=== PATIENT | male | born 1945 | race Caucasian/White ===

== ENCOUNTER 2018-11-15 11:26 | Inpatient (IN) | payer MEDICARE, OTHER ==
[~2018-11-15] VITALS: Ht 180.3 cm; Wt 106.1 kg
[~2018-11-15 11:26] MED LIST: ALFU10TA10 PO; ASPI-1009 PO; CARV3.122 PO; CHOL10002 PO; CYAN1TAB41; FLUO20CA39 PO; HYDR-3965 PO; HYDR12.522 PO; INSU100V12 SQ; LOSA25TA96 PO; MESA800T PO; NITR0.4T51 SL; POTA20TA19 PO; PREN1TAB41 PO; RANI300C7 PO; ROSU40TA PO; SUCR1TAB PO
[2018-11-15 11:50] LABS: BASOPHILS # (AUTO) 0.1 X10'3 (0-0.2); BASOPHILS % (AUTO) 1.1 % (0-1); EOSINOPHILS # (AUTO) 0.1 X10'3 (0-0.9); EOSINOPHILS % (AUTO) 1.6 % (0-6); HEMATOCRIT 29.6 % (42.0-52.0); LYMPHOCYTES % (AUTO) 16.2 % (21-51); MEAN CORPUSCULAR HGB CONC 33.6 g/dL (33.0-36.5); MEAN CORPUSCULAR VOLUME 86.3 FL (78-98); MONOCYTES # (AUTO) 0.5 X10'3 (0-0.9); MONOCYTES % (AUTO) 8.1 % (2-12); NEUTROPHILS # (AUTO) 4.4 X10'3 (1.8-7.7); PLATELET COUNT 189 X10'3 (140-440); RED BLOOD COUNT 3.43 X10'6 (4.70-6.10); RED CELL DISTRIBUTION WIDTH 16.2 % (11.5-14.5)
[2018-11-15 12:05] LABS: PARTIAL THROMBOPLASTIN TIME 28 SECONDS (22-32)
[2018-11-15 12:07] LABS: ALANINE AMINOTRANSFERASE 81 U/L (12-78); ALBUMIN 3.4 G/DL (3.4-5.0); ALBUMIN/GLOBULIN RATIO 1.1 (1.1-1.5); ALKALINE PHOSPHATASE 148 IU/L (46-116); ANION GAP 10 (8-16); ASPARTATE AMINO TRANSFERASE 33 U/L (10-37); BILIRUBIN,TOTAL 0.5 MG/DL (0.1-1.0); BLOOD UREA NITROGEN 33 MG/DL (7-18); BUN/CREATININE RATIO 14.5 (5.4-32.0); CHLORIDE 108 MMOL/L (99-107); CREATININE 2.27 MG/DL (0.60-1.10); GLUCOSE 208 MG/DL (70-104); POTASSIUM 4.2 MMOL/L (3.5-5.1); SODIUM 141 MMOL/L (135-145); TOTAL CARBON DIOXIDE 22.7 MMOL/L (24-32); TOTAL PROTEIN 6.4 G/DL (6.4-8.2); eGFR 29 ML/MIN
[2018-11-15] MEDS ORDERED: furosemide 10 MG/1 ML 10ml inj IV ONE (12:40)
[2018-11-15] MEDS ORDERED: METF-438 PO (12:59)
[2018-11-15] MEDS ORDERED: NITR0.4T SL (13:00)
[2018-11-15] MEDS ORDERED: RANI300T7 PO (13:02)
[2018-11-15] MEDS ORDERED: CYAN100097 PO (13:05)
[2018-11-15] MEDS ORDERED: MULT1TAB74 PO (13:06)
[2018-11-15] MEDS ORDERED: ASPI-845 PO (13:07)
[2018-11-15] MEDS ORDERED: LYR75C PO (13:08)
[2018-11-15] MEDS ORDERED: FURO-149 PO (13:08)
[2018-11-15] MEDS ORDERED: ROSU20TA2 PO (13:10)
[2018-11-15] MEDS ORDERED: magnesium Cl slow-release 64mg tablet PO PRN (14:45)
[2018-11-15] MEDS ORDERED: ondansetron/PF 4mg/2ml inj IV PRN (14:45)
[2018-11-15] MEDS ORDERED: magnesium 4gm in 100ml NS 100 ML IV PRN (14:45)
[2018-11-15] MEDS ORDERED: magnesium 2GM in 50ml NS 50 ML IV PRN (14:45)
[2018-11-15] MEDS ORDERED: potassium CL 10mEq/100ml bag 100 ML IV PRN ×2 (14:45)
[2018-11-15] MEDS ORDERED: acetaminophen 325mg tablet PO PRN (14:45)
[2018-11-15] MEDS ORDERED: potassium Cl 20 mEq SR tablet PO PRN ×2 (14:45)
--- NOTE | 2018-11-15 16:23 | NUR ---
PT CAME FROM THE ER AND WAS COMPLAINING OF BEING LIGHT HEADED. HE STATES IM A DM11. CHECKED HIS BS IT WAS 65. NO PROTOCOL ON EMAR YET. 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
[2018-11-15 17:00] VITALS: BP 172/72
[2018-11-15] MEDS ORDERED: MESSAGE TO PHARMACY PO ONE ×2 (17:00→17:05)
[2018-11-15] MEDS ORDERED: glucagon, human recombinant 1mg kit SUBCUT PRN (17:05)
[2018-11-15] MEDS ORDERED: dextrose ORAL solution 15 GM/59 ML bottle PO PRN ×2 (17:05)
[2018-11-15] MEDS ORDERED: insulin Lispro (HumaLOG) vial - multi-dose SQ SCH (17:05)
[2018-11-15] MEDS ORDERED: dextrose 50%-water 50ml dispensing syringe IV PRN ×2 (17:05)
[2018-11-15] MEDS ORDERED: SACU1TAB PO (17:25)
[2018-11-15] MEDS ORDERED: SERT100T PO (17:26)
[2018-11-15] MEDS ORDERED: HYDROcodone/acetaminophen 5mg/325mg tablet PO PRN (17:30)
[2018-11-15] MEDS ORDERED: nitroGLYCERIN 0.4mg SUBLingual tab SL PRN (17:30)
[2018-11-15] MEDS ORDERED: FLUoxetine 20mg capsule PO SCH (17:30)
--- NOTE | 2018-11-15 17:37 | NUR ---
MEDS ARE NOT UP FROM PHARMACY YET FOR 2976
--- NOTE | 2018-11-15 18:20 | NUR ---
GAVE REPORT TO RAYRAY SEO RN
--- NOTE | 2018-11-15 18:30 | NUR ---
Patient in room [facility]. I have received report from LOREN VICTOR and had the opportunity to ask questions and assume patient care.
[2018-11-15] MEDS: famotidine 20mg tablet PO SCH (19:50)
[2018-11-15] MEDS: sacubitril/valsartan 24mg-26mg tablet PO SCH (19:51)
[2018-11-15] MEDS: aspirin 325mg tablet, delayed-release (Ecotrin) PO SCH (19:51)
[2018-11-15] MEDS: carVEDilol 3.125mg tablet PO SCH (19:51)
[2018-11-15] MEDS: sucralfate 1 gm tablet PO SCH (19:51)
[2018-11-15] MEDS: heparin, porcine 5000 units/ml vial SQ SCH (19:56)
[2018-11-15 20:00] VITALS: BP 117/69
[2018-11-15] MEDS ORDERED: tamsulosin 0.4mg capsule PO SCH (21:00)
[2018-11-15] MEDS ORDERED: insulin glargine (Lantus) pen - multi-dose SQ SCH (21:00)
[2018-11-16] VITALS: BP 92/49
[2018-11-16 05:19] LABS: BASOPHILS # (AUTO) 0.1 X10'3 (0-0.2); BASOPHILS % (AUTO) 1.4 % (0-1); EOSINOPHILS # (AUTO) 0.2 X10'3 (0-0.9); EOSINOPHILS % (AUTO) 3.4 % (0-6); HEMATOCRIT 31.6 % (42.0-52.0); HEMOGLOBIN 10.6 g/dl (14.0-17.9); LYMPHOCYTES # (AUTO) 1.2 X10'3 (1.1-4.8); LYMPHOCYTES % (AUTO) 25.2 % (21-51); MEAN CORPUSCULAR HEMOGLOBIN 29.3 PG (27.0-31.0); MEAN CORPUSCULAR HGB CONC 33.7 g/dL (33.0-36.5); MEAN CORPUSCULAR VOLUME 86.8 FL (78-98); MEAN PLATELET VOLUME 7.8 FL (7.4-10.4); MONOCYTES # (AUTO) 0.6 X10'3 (0-0.9); MONOCYTES % (AUTO) 11.6 % (2-12); NEUTROPHILS # (AUTO) 2.9 X10'3 (1.8-7.7); NEUTROPHILS % (AUTO) 58.4 % (42-75); PLATELET COUNT 196 X10'3 (140-440); RED BLOOD COUNT 3.63 X10'6 (4.70-6.10); RED CELL DISTRIBUTION WIDTH 15.8 % (11.5-14.5); WHITE BLOOD COUNT 4.9 X10'3 (4.5-11.0)
[2018-11-16 05:36] LABS: ALBUMIN 3.3 G/DL (3.4-5.0); ANION GAP 10 (8-16); BLOOD UREA NITROGEN 32 MG/DL (7-18); BUN/CREATININE RATIO 16.4 (5.4-32.0); CALCIUM 9.4 MG/DL (8.5-10.1); CHLORIDE 108 MMOL/L (99-107); CREATININE 1.95 MG/DL (0.60-1.10); GLUCOSE 140 MG/DL (70-104); MAGNESIUM 1.9 MG/DL (1.5-2.4); POTASSIUM 3.6 MMOL/L (3.5-5.1); SODIUM 145 MMOL/L (135-145); TOTAL CARBON DIOXIDE 26.8 MMOL/L (24-32); eGFR 34 ML/MIN
--- NOTE | 2018-11-16 06:30 | NUR ---
Problems reprioritized. Patient report given, questions answered & plan of care reviewed with ELI VICTOR.
[2018-11-16 07:24] VITALS: BP 102/55
[2018-11-16] MEDS: sucralfate 1 gm tablet PO SCH (07:55)
[2018-11-16] MEDS: aspirin 325mg tablet, delayed-release (Ecotrin) PO SCH (07:58)
[2018-11-16] MEDS: famotidine 20mg tablet PO SCH (07:59)
[2018-11-16] MEDS: sacubitril/valsartan 24mg-26mg tablet PO SCH (08:00)
[2018-11-16] MEDS ORDERED: K and/or MAG REPLACEMENT MC SCH (08:00)
[2018-11-16] MEDS ORDERED: sertraline 50mg tablet PO SCH (08:00)
[2018-11-16] MEDS: carVEDilol 3.125mg tablet PO SCH (08:00)
[2018-11-16] MEDS ORDERED: atorvastatin 20mg tablet PO SCH (08:00)
[2018-11-16] MEDS: heparin, porcine 5000 units/ml vial SQ SCH (08:00)
[2018-11-16] MEDS ORDERED: potassium Cl 20 mEq SR tablet PO SCH (08:00)
[2018-11-16] MEDS ORDERED: multivitamins, therapeutics tablet PO SCH (08:00)
[2018-11-16] MEDS ORDERED: cyanocobalamin 500mcg tablet PO SCH (08:00)
[2018-11-16] MEDS ORDERED: vitamin D (cholecalciferol) 1,000 unit tablet PO SCH (08:00)
[2018-11-16] MEDS ORDERED: pregabalin 75mg capsule PO SCH (08:00)
[2018-11-16 11:13] VITALS: BP 119/71
--- NOTE | 2018-11-16 13:00 | NUR ---
Patient discharged home stable and appropriate. iv removed. telemetry removed. all belongings taken from room. diabetes survival skills given with discharge instructions. all reviewed with patient. all questions answered.
== END 2018-11-16 13:00 | disposition home or self-care (01) | DRG 682 ==
LOC: ER 11:27 → SUR 3N 16:14
PROVIDERS: ADMIT Internal Medicine; ATTEND Internal Medicine
DX: N17.9 Acute kidney failure, unspecified (principal); I50.23 Acute on chronic systolic (congestive) heart failure; D63.8 Anemia in other chronic diseases classified elsewhere; E78.5 Hyperlipidemia, unspecified; E11.40 Type 2 diabetes mellitus with diabetic neuropathy, unspecified; F32.9 Major depressive disorder, single episode, unspecified; I11.0 Hypertensive heart disease with heart failure; Z79.4 Long term (current) use of insulin; Z88.5 Allergy status to narcotic agent; Z88.1 Allergy status to other antibiotic agents; Z79.899 Other long term (current) drug therapy
CPT/HCPCS: 36415; 71045; 80048; 80053; 82948; 83036; 83735; 83880; 84484; 85025; 85610; 85730; 87081; 93005; 93306; 96374; 99285; G0378; J1644; J1815; J1940

== ENCOUNTER 2019-05-09 06:23 | Day surgery (SDC) | payer MEDICARE, OTHER ==
[2019-05-07 15:25] LABS: BASOPHILS # (AUTO) 0.1 X10'3 (0-0.2); BASOPHILS % (AUTO) 1.1 % (0-1); EOSINOPHILS # (AUTO) 0.1 X10'3 (0-0.9); EOSINOPHILS % (AUTO) 1.9 % (0-6); LYMPHOCYTES # (AUTO) 1.4 X10'3 (1.1-4.8); LYMPHOCYTES % (AUTO) 21.5 % (21-51); MEAN CORPUSCULAR HEMOGLOBIN 29.1 PG (27.0-31.0); MEAN CORPUSCULAR HGB CONC 33.3 g/dL (33.0-36.5); MEAN CORPUSCULAR VOLUME 87.4 FL (78-98); MEAN PLATELET VOLUME 7.6 FL (7.4-10.4); MONOCYTES # (AUTO) 0.5 X10'3 (0-0.9); MONOCYTES % (AUTO) 8.1 % (2-12); NEUTROPHILS # (AUTO) 4.3 X10'3 (1.8-7.7); NEUTROPHILS % (AUTO) 67.4 % (42-75); PRE OP HEMATOCRIT 35.7 % (42.0-52.0); PRE OP HEMOGLOBIN 11.9 g/dL (14.0-17.9); PRE OP PLATELET COUNT 204 X10'3 (140-440); RED BLOOD COUNT 4.09 X10'6 (4.70-6.10); RED CELL DISTRIBUTION WIDTH 15.7 % (11.5-14.5)
[2019-05-07 15:47] LABS: ALBUMIN/GLOBULIN RATIO 1.3 (1.1-1.5); ALKALINE PHOSPHATASE 79 IU/L (46-116); BLOOD UREA NITROGEN 36 MG/DL (7-18); BUN/CREATININE RATIO 17.5 (5.4-32.0); CALCIUM 9.5 MG/DL (8.5-10.1); CHLORIDE 106 MMOL/L (99-107); CREATININE 2.06 MG/DL (0.60-1.10); PRE OP ALT 21 U/L (30-65); PRE OP ANION GAP 13 (8-16); PRE OP AST 14 U/L (10-37); PRE OP BILIRUB, TOTAL 0.6 MG/DL (0.0-1.0); PRE OP POTASSIUM 4.1 MMOL/L (3.4-5.1); PRE OP SODIUM 142 MMOL/L (135-145); TOTAL CARBON DIOXIDE 23.4 MMOL/L (24-32); TOTAL PROTEIN 7.2 G/DL (6.4-8.2); eGFR 32 ML/MIN
[2019-05-07 15:50] LABS: PRE OP GLUCOSE 217 MG/DL (70-104)
[~2019-05-09] VITALS: Ht 180.3 cm; Wt 111.1 kg
[~2019-05-09 06:23] MED LIST changes: -ASPI-1009 PO; +ASPI-845 PO; +CYAN100097 PO; -CYAN1TAB41; -FLUO20CA39 PO; +FURO-149 PO; -HYDR12.522 PO; -LOSA25TA96 PO; +MULT1TAB74 PO; +NITR0.4T SL; -NITR0.4T51 SL; -PREN1TAB41 PO; -RANI300C7 PO; +RANI300T7 PO; -ROSU40TA PO; +SACU1TAB PO; +cefazolin/dext.iso 2gm/100ml 100 ML IV ONE; +famotidine 10mg tablet PO ONE; +famotidine 20mg tablet PO ONE; +ringers solution, lacted 1,000 ML IV SCH
[2019-05-09 06:30] VITALS: BP 119/65
[2019-05-09] MEDS ORDERED: BUPIVAcaine/PF 2.5mg/ml (0.25%) 10ml vial ONE (06:59)
[2019-05-09] MEDS ORDERED: famotidine 10mg tablet PO ONE (07:05)
[2019-05-09] MEDS ORDERED: LIDOcaine 1% (10mg/ml) 2ml vial ONE (07:16)
[2019-05-09] MEDS ORDERED: LIDOcaine 0.5% (5mg/ml) 50ml vial ONE (08:51)
[2019-05-09] MEDS ORDERED: midazolam 2 mg/2 ml injection ONE (08:55)
[2019-05-09] MEDS ORDERED: fentaNYL/PF 50MCG/1 ML 2ML syringe ONE (08:55)
[2019-05-09 09:17] VITALS: BP 103/62
--- NOTE | 2019-05-09 09:17 | NUR ---
Received from OR via TOBIN, accompanied by Anesthesiologist DR GALEANA and report given by Anesthesiologist. 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 Addendum: 05/09/19 at 0943 by Ashtyn Steel RN Amended: Links added.
[2019-05-09 09:27] VITALS: BP 110/61
[2019-05-09 09:37] VITALS: BP 104/57
[2019-05-09 09:47] VITALS: BP 115/63
[2019-05-09 09:57] VITALS: BP 118/61
--- NOTE | 2019-05-09 10:07 | NUR ---
D/C INSTRUCTIONS GIVEN AND GONE OVER W/PT WHO VERBALIZES UNDERSTANDING, PT D/CD TO HOME VIA W/C TO PRIVATE VEHICLE W/O INCIDENT. Addendum: 05/09/19 at 1021 by Ashtyn Steel RN Amended: Links added.
== END 2019-05-09 10:07 | disposition home or self-care (01) ==
LOC: PAS 06:23
PROVIDERS: ATTEND Orthopaedic Surgery Hand Surgery
DX: G56.02 Carpal tunnel syndrome, left upper limb (principal); J45.909 Unspecified asthma, uncomplicated; D64.9 Anemia, unspecified; I25.10 Atherosclerotic heart disease of native coronary artery without angina pectoris; F32.9 Major depressive disorder, single episode, unspecified; K21.9 Gastro-esophageal reflux disease without esophagitis; E78.00 Pure hypercholesterolemia, unspecified; I10 Essential (primary) hypertension; M19.90 Unspecified osteoarthritis, unspecified site; Z72.89 Other problems related to lifestyle; Z88.5 Allergy status to narcotic agent; Z79.899 Other long term (current) drug therapy; Z98.890 Other specified postprocedural states
CPT/HCPCS: 29848; 36415; 71046; 80053; 82948; 85025; 93005; J2001; J2250; J3010; J3490; A4215; J7120

== ENCOUNTER 2019-06-30 06:08 | Day surgery (SDC) | payer MEDICARE, OTHER ==
[2019-06-26 11:29] LABS: BASOPHILS # (AUTO) 0.1 X10'3 (0-0.2); BASOPHILS % (AUTO) 1.3 % (0-1); EOSINOPHILS # (AUTO) 0.2 X10'3 (0-0.9); EOSINOPHILS % (AUTO) 2.4 % (0-6); LYMPHOCYTES # (AUTO) 1.4 X10'3 (1.1-4.8); LYMPHOCYTES % (AUTO) 21.3 % (21-51); MEAN CORPUSCULAR HEMOGLOBIN 28.5 PG (27.0-31.0); MEAN CORPUSCULAR VOLUME 86.1 FL (78-98); MEAN PLATELET VOLUME 7.4 FL (7.4-10.4); MONOCYTES # (AUTO) 0.5 X10'3 (0-0.9); MONOCYTES % (AUTO) 7.2 % (2-12); NEUTROPHILS # (AUTO) 4.4 X10'3 (1.8-7.7); NEUTROPHILS % (AUTO) 67.8 % (42-75); PRE OP HEMATOCRIT 36.8 % (42.0-52.0); PRE OP HEMOGLOBIN 12.2 g/dL (14.0-17.9); PRE OP PLATELET COUNT 195 X10'3 (140-440); RED BLOOD COUNT 4.28 X10'6 (4.70-6.10); RED CELL DISTRIBUTION WIDTH 14.9 % (11.5-14.5)
[2019-06-26 11:57] LABS: ALBUMIN 4.1 G/DL (3.4-5.0); ALBUMIN/GLOBULIN RATIO 1.2 (1.1-1.5); ALKALINE PHOSPHATASE 88 IU/L (46-116); BLOOD UREA NITROGEN 40 MG/DL (7-18); BUN/CREATININE RATIO 20.7 (5.4-32.0); CALCIUM 9.8 MG/DL (8.5-10.1); CHLORIDE 106 MMOL/L (99-107); CREATININE 1.93 MG/DL (0.60-1.10); PRE OP ALT 15 U/L (30-65); PRE OP ANION GAP 7 (8-16); PRE OP AST 18 U/L (10-37); PRE OP BILIRUB, TOTAL 0.5 MG/DL (0.0-1.0); PRE OP GLUCOSE 133 MG/DL (70-104); PRE OP POTASSIUM 4.6 MMOL/L (3.4-5.1); PRE OP SODIUM 139 MMOL/L (135-145); TOTAL CARBON DIOXIDE 25.7 MMOL/L (24-32); TOTAL PROTEIN 7.4 G/DL (6.4-8.2); eGFR 34 ML/MIN
[~2019-06-30] VITALS: Ht 180.3 cm; Wt 108.9 kg
[~2019-06-30 06:08] MED LIST changes: +DOCUMENT DATE & TIME OF BETA-BLOCKER PO ONE; +FLUT1BLS4 INH; +albuterol 2.5 MG/3 ML nebule NEB ONE; -famotidine 10mg tablet PO ONE
[2019-06-30] MEDS ORDERED: BUPIVAcaine/PF 2.5mg/ml (0.25%) 10ml vial ONE (06:41)
[2019-06-30] MEDS ORDERED: ringers solution, lacted 1,000 ML IV SCH (07:12)
[2019-06-30] MEDS ORDERED: fentaNYL/PF 50MCG/1 ML 2ML syringe IV PRN ×2 (07:15)
[2019-06-30] MEDS ORDERED: ondansetron/PF 4mg/2ml inj IV PRN (07:15)
[2019-06-30] MEDS ORDERED: hydrALAZINE 20mg/ml inj. IV PRN (07:15)
[2019-06-30] MEDS ORDERED: HYDROmorphone inj. 0.5 MG/0.5 ML DISP.SYRIN IV PRN ×2 (07:15)
[2019-06-30] MEDS ORDERED: labetalol 20mg/4ml (5mg/ml) syringe IV PRN (07:15)
[2019-06-30] MEDS ORDERED: LIDOcaine 0.5% (5mg/ml) 50ml vial ONE (07:19)
[2019-06-30] MEDS ORDERED: MIDAZolam 5mg/5ml vial ONE (07:23)
[2019-06-30] MEDS ORDERED: fentaNYL/PF 50MCG/1 ML 2ML syringe ONE (07:23)
[2019-06-30] MEDS ORDERED: LIDOcaine 2% (20mg/ml) 5ml vial ONE (07:25)
[2019-06-30] MEDS ORDERED: propofol inj 20 ML IV ONE (07:25)
[2019-06-30 07:35] VITALS: BP 127/73
[2019-06-30 08:35] VITALS: BP 107/56
--- NOTE | 2019-06-30 08:35 | NUR ---
Received from OR via BED , accompanied by Anesthesiologist DR BERTRAND and report given by Anesthesiolgist. PATIENT WAKING UP, DENIES PAIN, V/S WNL, NEUROVASCULAR CHECKLS INTACT, 20G PIV TO LUE, SCD ON, DRESSING SPLINT TO RUE WHICH IS ELEVATED AND ICE APPLIED PER MD. PATIENT INSTRUCTED TO WIGGLE FINGERS OFTEN.
[2019-06-30 08:45] VITALS: BP 102/61
[2019-06-30 08:55] VITALS: BP 106/65
[2019-06-30 09:05] VITALS: BP 109/66
[2019-06-30 09:15] VITALS: BP 111/68
--- NOTE | 2019-06-30 09:15 | NUR ---
PATIENT A&OX4, DENIES PAIN, V/S WNL, NEUROVASCULAR CHECKLS INTACT, 20G PIV TO LUE D/C, SCD OFF, DRESSING /SPLINT TO RUE WHICH IS ELEVATED AND ICE APPLIED PER MD. PATIENT INSTRUCTED TO WIGGLE FINGERS OFTEN. I HAVE REVIEWED D/C INSTRUCTIONS WITH PATIENT AND FAMILY WHO VERBALIZES UNDERSTANDING. PATIENT D/C HOME WITH ALL BELONGINGS, TRANSPORTED TO [facility] VIA WC.
== END 2019-06-30 09:26 | disposition home or self-care (01) ==
LOC: PAS 06:08
PROVIDERS: ATTEND Orthopaedic Surgery Hand Surgery
DX: G56.01 Carpal tunnel syndrome, right upper limb (principal); M17.11 Unilateral primary osteoarthritis, right knee; F32.9 Major depressive disorder, single episode, unspecified; D64.9 Anemia, unspecified; I25.10 Atherosclerotic heart disease of native coronary artery without angina pectoris; E11.9 Type 2 diabetes mellitus without complications; E78.00 Pure hypercholesterolemia, unspecified; I10 Essential (primary) hypertension; K21.9 Gastro-esophageal reflux disease without esophagitis; Z79.899 Other long term (current) drug therapy; Z88.6 Allergy status to analgesic agent; Z98.890 Other specified postprocedural states; Z72.89 Other problems related to lifestyle
CPT/HCPCS: 29848; 36415; 80053; 82948; 85025; J2001; J2250; J2704; J3010; J3490; A4215; A7000; J7120

== ENCOUNTER 2020-01-21 09:04 | Day surgery (SDC) | payer MEDICARE, OTHER ==
[2020-01-20 13:33] LABS: BASOPHILS # (AUTO) 0.1 X10'3 (0-0.2); BASOPHILS % (AUTO) 1.4 % (0-1); EOSINOPHILS # (AUTO) 0.1 X10'3 (0-0.9); EOSINOPHILS % (AUTO) 1.9 % (0-6); HEMATOCRIT 32.4 % (42.0-52.0); HEMOGLOBIN 10.6 g/dl (14.0-17.9); LYMPHOCYTES % (AUTO) 19.6 % (21-51); MEAN CORPUSCULAR HEMOGLOBIN 29.3 PG (27.0-31.0); MEAN CORPUSCULAR HGB CONC 32.7 g/dL (33.0-36.5); MEAN CORPUSCULAR VOLUME 89.8 FL (78-98); MONOCYTES # (AUTO) 0.5 X10'3 (0-0.9); MONOCYTES % (AUTO) 9.8 % (2-12); NEUTROPHILS # (AUTO) 3.3 X10'3 (1.8-7.7); NEUTROPHILS % (AUTO) 67.3 % (42-75); PLATELET COUNT 138 X10'3 (140-440); RED BLOOD COUNT 3.61 X10'6 (4.70-6.10); WHITE BLOOD COUNT 4.9 X10'3 (4.5-11.0)
[2020-01-20 13:39] LABS: ALBUMIN 3.9 G/DL (3.4-5.0); ANION GAP 6 (8-16); BLOOD UREA NITROGEN 36 MG/DL (7-18); BUN/CREATININE RATIO 15.7 (5.4-32.0); CALCIUM 9.6 MG/DL (8.5-10.1); CHLORIDE 102 MMOL/L (99-107); CREATININE 2.29 MG/DL (0.60-1.10); GLUCOSE 273 MG/DL (70-104); POTASSIUM 4.2 MMOL/L (3.5-5.1); SODIUM 136 MMOL/L (135-145); TOTAL CARBON DIOXIDE 27.7 MMOL/L (24-32); eGFR 28 ML/MIN
[2020-01-20 13:42] LABS: PARTIAL THROMBOPLASTIN TIME 25 SECONDS (22-32)
[2020-01-21] VITALS (14 sets, daily range): BP systolic 94–129; BP diastolic 53–81
[~2020-01-21] VITALS: Ht 185.4 cm; Wt 107.5 kg
[~2020-01-21 09:04] MED LIST changes: -DOCUMENT DATE & TIME OF BETA-BLOCKER PO ONE; +MULT-620 PO; -MULT1TAB74 PO; -albuterol 2.5 MG/3 ML nebule NEB ONE; -cefazolin/dext.iso 2gm/100ml 100 ML IV ONE; -famotidine 20mg tablet PO ONE; -ringers solution, lacted 1,000 ML IV SCH
[2020-01-21] MEDS ORDERED: LIDOcaine/PRILOcaine 5gm cream TP ONE (09:25)
[2020-01-21] MEDS ORDERED: LORazepam 0.5 MG tablet PO PRN (09:25)
[2020-01-21] MEDS ORDERED: sodium bicarbonate (8.4%) inj. 150 ML in dextrose 5%-water 1,000 ML IV ONE (09:25)
[2020-01-21] MEDS ORDERED: diphenhydrAMINE 25mg capsule PO PRN (09:25)
[2020-01-21] MEDS ORDERED: normal saline 1,000 ML IV SCH (09:25)
[2020-01-21] MEDS ORDERED: FURO-150 PO (09:29)
[2020-01-21] MEDS ORDERED: acetylcysteine 200 MG/ml 4ml vial PO PRN (09:50)
[2020-01-21] MEDS ORDERED: verapamil 2.5 mg/ml inj IV ONE (09:54)
[2020-01-21] MEDS ORDERED: nitroGLYCERIN-Tridil 50MG/D5W 250 ML IV ONE (09:54)
[2020-01-21] MEDS ORDERED: midazolam 2 mg/2 ml injection ONE (09:55)
[2020-01-21] MEDS ORDERED: fentaNYL/PF 50MCG/1 ML 2ML syringe ONE (09:55)
[2020-01-21] MEDS ORDERED: heparin 1,000unit/ml 10ml vial 10 ML ONE (09:55)
[2020-01-21] MEDS ORDERED: LIDOcaine 1% (10mg/ml)w/preservative injection 20ml MDV ONE (09:55)
[2020-01-21] MEDS ORDERED: iohexol 350MG/ML 100ml bottle IV ONE (09:55)
[2020-01-21] MEDS ORDERED: iohexol 350 MG/ML 50ML vial IV ONE (09:55)
[2020-01-21] MEDS ORDERED: DOBUTamine-DoBUTrex 500mg/D5W 250 ML IV ONE (10:57)
[2020-01-21] MEDS ORDERED: sodium bicarbonate (8.4%) inj. 150 MEQ in dextrose 5%-water 1,000 ML IV SCH (12:20)
[2020-01-21] MEDS ORDERED: furosemide 40mg/4ml inj IV ONE (15:00)
== END 2020-01-21 17:55 | disposition home or self-care (01) ==
LOC: SSTAY O 09:04
PROVIDERS: ATTEND Internal Medicine Cardiovascular Disease
DX: R53.83 Other fatigue (principal); R06.02 Shortness of breath; I25.10 Atherosclerotic heart disease of native coronary artery without angina pectoris; T82.855A Stenosis of coronary artery stent, initial encounter; N18.9 Chronic kidney disease, unspecified; I50.22 Chronic systolic (congestive) heart failure; I35.0 Nonrheumatic aortic (valve) stenosis; Z79.899 Other long term (current) drug therapy; Y83.8 Other surgical procedures as the cause of abnormal reaction of the patient, or of later complication, without mention of misadventure at the time of the procedure; Y92.89 Other specified places as the place of occurrence of the external cause
CPT/HCPCS: 36415; 80048; 82948; 85025; 85610; 85730; 93005; 93460; 99152; 99153; C1769; C1894; J1250; J1644; J1940; J2001; J2250; J3010; J7030; Q0163; Q9967; A4620; A5120; A6258; C1751; J3490

== ENCOUNTER 2020-11-12 12:16 | Day surgery (SDC) | payer MEDICARE, OTHER ==
[2020-11-11 12:19] LABS: BASOPHILS # (AUTO) 0.1 X10'3 (0-0.2); BASOPHILS % (AUTO) 1.7 % (0-1); EOSINOPHILS # (AUTO) 0.1 X10'3 (0-0.9); EOSINOPHILS % (AUTO) 2.2 % (0-6); HEMATOCRIT 33.4 % (42.0-52.0); HEMOGLOBIN 11.1 g/dl (14.0-17.9); LYMPHOCYTES % (AUTO) 18.6 % (21-51); MEAN CORPUSCULAR HGB CONC 33.2 g/dL (33.0-36.5); MEAN CORPUSCULAR VOLUME 90.4 FL (78-98); MEAN PLATELET VOLUME 7.9 FL (7.4-10.4); MONOCYTES # (AUTO) 0.4 X10'3 (0-0.9); MONOCYTES % (AUTO) 7.4 % (2-12); NEUTROPHILS # (AUTO) 3.7 X10'3 (1.8-7.7); NEUTROPHILS % (AUTO) 70.1 % (42-75); PLATELET COUNT 166 X10'3 (140-440); RED CELL DISTRIBUTION WIDTH 15.4 % (11.5-14.5); WHITE BLOOD COUNT 5.3 X10'3 (4.5-11.0)
[2020-11-11 12:29] LABS: ANION GAP 13 (8-16); BLOOD UREA NITROGEN 68 MG/DL (7-18); BUN/CREATININE RATIO 24.5 (5.4-32.0); CALCIUM 9.6 MG/DL (8.5-10.1); CHLORIDE 106 MMOL/L (99-107); CREATININE 2.78 MG/DL (0.60-1.10); GLUCOSE 115 MG/DL (70-104); MAGNESIUM 2.5 MG/DL (1.5-2.4); POTASSIUM 3.8 MMOL/L (3.5-5.1); SODIUM 141 MMOL/L (135-145); TOTAL CARBON DIOXIDE 22.3 MMOL/L (24-32); eGFR 22 ML/MIN
[2020-11-11 12:30] LABS: PARTIAL THROMBOPLASTIN TIME 22 SECONDS (22-32)
[2020-11-12] VITALS (10 sets, daily range): BP systolic 94–121; BP diastolic 54–70
[~2020-11-12] VITALS: Ht 180.3 cm; Wt 96.5 kg
[~2020-11-12 12:16] MED LIST changes: -CHOL10002 PO; -FLUT1BLS4 INH; -FURO-149 PO; +FURO-150 PO; -MULT-620 PO; -SACU1TAB PO
[2020-11-12] MEDS ORDERED: CHOL200013 (12:58)
[2020-11-12] MEDS ORDERED: FURO40TA4 PO (12:58)
[2020-11-12] MEDS ORDERED: INSU100V12 SQ (12:58)
[2020-11-12] MEDS ORDERED: INSU100C4 SQ (12:58)
[2020-11-12] MEDS ORDERED: sodium bicarbonate (8.4%) inj. 150 ML in dextrose 5%-water 1,000 ML IV ONE (13:15)
[2020-11-12] MEDS ORDERED: midazolam 1 mg/ML 2ml injection ONE (13:15)
[2020-11-12] MEDS ORDERED: ceFAZolin 1000mg inj ONE (13:16)
[2020-11-12] MEDS ORDERED: fentaNYL/PF 50MCG/1 ML 2ML syringe ONE (13:16)
[2020-11-12] MEDS ORDERED: iohexol 350MG/ML 100ml bottle IV ONE (13:16)
--- NOTE | 2020-11-12 13:16 | NUR ---
DR. BOWDEN CALLED, NEW TELEPHONE ORDER FOR MUCOMYST X2 AND BICARB GTT FOR ELEVATED CREATNINE
[2020-11-12] MEDS ORDERED: LIDOcaine 1% W/epiNEPHrine 1:100,000 20ml vial ONE ×2 (13:17→14:31)
[2020-11-12] MEDS: acetylcysteine 200 MG/ml 4ml vial PO SCH ×2 (13:28→20:15)
[2020-11-12] MEDS ORDERED: ceFAZolin 2gm in dextrose, iso 50 ML IV ONE (13:58)
[2020-11-12] MEDS ORDERED: diphenhydrAMINE 50 mg/ml inj ONE (15:27)
[2020-11-12] MEDS ORDERED: HYDROcodone/acetaminophen 5mg/325mg tablet PO PRN (16:45)
[2020-11-12] MEDS ORDERED: HYDROcodone/acetaminophen 10/325mg tab PO PRN (16:45)
[2020-11-12] MEDS ORDERED: normal saline 1000ml 1,000 ML IV SCH (16:45)
[2020-11-12] MEDS ORDERED: vancomycin/NS 1 GM ADD-VANTAGE 250 ML X 1 DOSE IV ONE (18:00)
== END 2020-11-12 20:45 | disposition home or self-care (01) ==
LOC: SSTAY O 12:16
PROVIDERS: ATTEND Internal Medicine Cardiovascular Disease
DX: I42.0 Dilated cardiomyopathy (principal); I44.7 Left bundle-branch block, unspecified; I11.0 Hypertensive heart disease with heart failure; I50.22 Chronic systolic (congestive) heart failure; E78.5 Hyperlipidemia, unspecified; E11.9 Type 2 diabetes mellitus without complications; I25.10 Atherosclerotic heart disease of native coronary artery without angina pectoris; I42.9 Cardiomyopathy, unspecified; Z95.5 Presence of coronary angioplasty implant and graft; Z98.890 Other specified postprocedural states; Z79.899 Other long term (current) drug therapy; Z79.82 Long term (current) use of aspirin; Z79.4 Long term (current) use of insulin; Z88.5 Allergy status to narcotic agent; Z88.8 Allergy status to other drugs, medicaments and biological substances
CPT/HCPCS: 33225; 33249; 36415; 71046; 80048; 82948; 83735; 85025; 85610; 85730; 93005; 99152; 99153; C1769; C1882; C1887; C1894; C1895; C1900; J0690; J1200; J2250; J3010; J3370; Q9967; A4620

== ENCOUNTER 2021-01-18 08:40 | Inpatient (IN) | payer MEDICARE, OTHER ==
[~2021-01-18] VITALS: Ht 180.3 cm; Wt 88.8 kg
[~2021-01-18 08:40] MED LIST changes: -CARV3.122 PO; +CHOL200013; -FURO-150 PO; +FURO40TA4 PO; -HYDR-3965 PO; +INSU100C4 SQ; +POTA-207 PO; -POTA20TA19 PO; -RANI300T7 PO
[2021-01-18 09:42] LABS: BASOPHILS # (AUTO) 0.1 X10'3 (0-0.2); BASOPHILS % (AUTO) 0.8 % (0-1); EOSINOPHILS # (AUTO) 0.1 X10'3 (0-0.9); HEMATOCRIT 26.6 % (42.0-52.0); HEMOGLOBIN 8.5 g/dl (14.0-17.9); LYMPHOCYTES # (AUTO) 0.5 X10'3 (1.1-4.8); LYMPHOCYTES % (AUTO) 7.5 % (21-51); MEAN CORPUSCULAR HEMOGLOBIN 29.7 PG (27.0-31.0); MEAN CORPUSCULAR HGB CONC 31.8 g/dL (33.0-36.5); MEAN CORPUSCULAR VOLUME 93.4 FL (78-98); MEAN PLATELET VOLUME 8.2 FL (7.4-10.4); MONOCYTES # (AUTO) 0.5 X10'3 (0-0.9); MONOCYTES % (AUTO) 6.6 % (2-12); NEUTROPHILS % (AUTO) 84.1 % (42-75); PLATELET COUNT 151 X10'3 (140-440); RED BLOOD COUNT 2.84 X10'6 (4.70-6.10); RED CELL DISTRIBUTION WIDTH 16.5 % (11.5-14.5); WHITE BLOOD COUNT 7.2 X10'3 (4.5-11.0)
[2021-01-18 10:01] LABS: MAGNESIUM 2.1 MG/DL (1.5-2.4)
[2021-01-18 10:23] LABS: ALANINE AMINOTRANSFERASE 61 U/L (12-78); ALBUMIN 3.3 G/DL (3.4-5.0); ALBUMIN/GLOBULIN RATIO 0.9 (1.1-1.5); ALKALINE PHOSPHATASE 277 IU/L (46-116); ANION GAP 14 (8-16); ASPARTATE AMINO TRANSFERASE 46 U/L (10-37); BILIRUBIN,TOTAL 0.5 MG/DL (0.1-1.0); BLOOD UREA NITROGEN 40 MG/DL (7-18); BUN/CREATININE RATIO 20.4 (5.4-32.0); CALCIUM 9.1 MG/DL (8.5-10.1); CHLORIDE 109 MMOL/L (99-107); CREATININE 1.96 MG/DL (0.60-1.10); GLUCOSE 263 MG/DL (70-104); POTASSIUM 3.7 MMOL/L (3.5-5.1); SODIUM 143 MMOL/L (135-145); TOTAL CARBON DIOXIDE 19.7 MMOL/L (24-32); TOTAL PROTEIN 6.8 G/DL (6.4-8.2); eGFR 34 ML/MIN
[2021-01-18] MEDS ORDERED: aspirin 81mg tab.chew PO ONE (11:00)
[2021-01-18] MEDS ORDERED: iohexol 350MG/ML 100ml bottle IV ONE (11:24)
[2021-01-18] MEDS ORDERED: FAMO40TA59 PO (13:54)
[2021-01-18] MEDS ORDERED: FERR-39 PO (13:54)
[2021-01-18] MEDS ORDERED: SACU1TAB PO (13:54)
[2021-01-18] MEDS ORDERED: POTA-82 PO (13:54)
[2021-01-18] MEDS ORDERED: SUCR1TAB PO (13:54)
[2021-01-18] MEDS ORDERED: INSU100V12 SQ (13:54)
[2021-01-18] MEDS ORDERED: CYAN-51 PO (13:54)
[2021-01-18] MEDS ORDERED: FURO40TA4 PO (13:54)
[2021-01-18] MEDS ORDERED: ALLO100T25 PO (13:54)
[2021-01-18] MEDS ORDERED: SEMA0.25 SQ (13:54)
[2021-01-18] MEDS ORDERED: MESA1.2T PO (13:54)
[2021-01-18] MEDS ORDERED: ROSU40TA PO (13:54)
[2021-01-18] MEDS ORDERED: SERT-434 PO (13:54)
[2021-01-18] MEDS ORDERED: furosemide 10 MG/1 ML 10ml inj IV ONE (14:00)
[2021-01-18] MEDS ORDERED: potassium Cl 40MEQ/1/2NS 520ml 520 ML IV PRN ×2 (14:30)
[2021-01-18] MEDS ORDERED: acetaminophen 325mg tablet PO PRN (14:30)
[2021-01-18] MEDS ORDERED: potassium Cl 20 mEq SR tablet PO PRN ×2 (14:30)
[2021-01-18] MEDS ORDERED: ondansetron/PF 4mg/2ml inj IV PRN (14:30)
[2021-01-18] MEDS ORDERED: magnesium hydroxide 30ml (MOM) UD suspension PO PRN (14:30)
[2021-01-18] MEDS ORDERED: PERFLUTREN PROTEIN-A MICROSPHR (Optison) 0.22 MG/ML 3ML VIAL IV PRN (14:30)
[2021-01-18] MEDS ORDERED: mag hydrox/Alum hydrox/simeth 30ml oral suspension PO PRN (14:30)
[2021-01-18] MEDS ORDERED: dextrose 50%-water 50ml dispensing syringe IV PRN ×2 (15:45)
[2021-01-18] MEDS ORDERED: glucagon, human recombinant 1mg kit SUBCUT PRN (15:45)
[2021-01-18] MEDS ORDERED: insulin Lispro (HumaLOG) vial - multi-dose SQ SCH (15:45)
[2021-01-18] MEDS ORDERED: MESSAGE TO PHARMACY PO ONE (15:45)
[2021-01-18] MEDS ORDERED: dextrose ORAL solution 15 GM/59 ML bottle PO PRN ×2 (15:45)
[2021-01-18 16:50] LABS: HEMOGLOBIN A1C 6.6 % (4.5-6.2)
[2021-01-18] MEDS: K and/or MAG REPLACEMENT MC SCH (20:00)
[2021-01-18] MEDS ORDERED: docusate sod 100mg capsule PO SCH (20:00)
[2021-01-18] MEDS ORDERED: insulin glargine (Lantus) pen - multi-dose SQ SCH (21:00)
[2021-01-18] MEDS: sucralfate 1 gm tablet PO SCH (22:17)
[2021-01-18] MEDS: furosemide 10 MG/1 ML 10ml inj IV SCH (22:17)
--- NOTE | 2021-01-19 01:30 | NUR ---
Justina from ED called. Recieved pt report, waiting for pt to arrive to unit
--- NOTE | 2021-01-19 01:30 | NUR ---
REPORT GIVEN TO FLOOR RN; VSS UPON DC; PT AOX4
--- NOTE | 2021-01-19 02:38 | NUR ---
Pt arrived in room 18B, did a physical, 2 RN skin check, hooked up to tele box. Pt independant and walked to the bed, skin clear, [place], no ther issues identified at this time. VS: 107/65, 16, 89, 97%, 98.5.
[2021-01-19 02:46] VITALS: BP 107/65
--- NOTE | 2021-01-19 06:33 | NUR ---
Problems reprioritized. Patient report given, questions answered & plan of care reviewed with Drake.
[2021-01-19] MEDS ORDERED: mesalamine 1.2gm ER tablet PO SCH (08:00)
[2021-01-19] MEDS ORDERED: sertraline 50mg tablet PO SCH (08:00)
[2021-01-19] MEDS ORDERED: sacubitril/valsartan 24mg-26mg tablet PO SCH (08:00)
[2021-01-19] MEDS: K and/or MAG REPLACEMENT MC SCH (08:00)
[2021-01-19] MEDS ORDERED: aspirin 325mg tablet PO SCH (08:00)
[2021-01-19] MEDS ORDERED: allopurinol 100mg tablet PO SCH (08:00)
[2021-01-19] MEDS ORDERED: atorvastatin 20mg tablet PO SCH (08:00)
[2021-01-19] MEDS ORDERED: famotidine 20mg tablet PO SCH (08:00)
[2021-01-19] MEDS ORDERED: tamsulosin 0.4mg capsule PO SCH (08:00)
[2021-01-19 08:03] LABS: BASOPHILS # (AUTO) 0.1 X10'3 (0-0.2); BASOPHILS % (AUTO) 0.8 % (0-1); EOSINOPHILS # (AUTO) 0.2 X10'3 (0-0.9); EOSINOPHILS % (AUTO) 2.6 % (0-6); HEMOGLOBIN 8.7 g/dl (14.0-17.9); LYMPHOCYTES # (AUTO) 1.2 X10'3 (1.1-4.8); LYMPHOCYTES % (AUTO) 18.2 % (21-51); MEAN CORPUSCULAR HEMOGLOBIN 30.8 PG (27.0-31.0); MEAN CORPUSCULAR HGB CONC 33.4 g/dL (33.0-36.5); MEAN CORPUSCULAR VOLUME 92.4 FL (78-98); MEAN PLATELET VOLUME 8.1 FL (7.4-10.4); MONOCYTES # (AUTO) 0.6 X10'3 (0-0.9); MONOCYTES % (AUTO) 9.1 % (2-12); NEUTROPHILS # (AUTO) 4.4 X10'3 (1.8-7.7); NEUTROPHILS % (AUTO) 69.3 % (42-75); RED BLOOD COUNT 2.81 X10'6 (4.70-6.10); RED CELL DISTRIBUTION WIDTH 16.4 % (11.5-14.5); WHITE BLOOD COUNT 6.4 X10'3 (4.5-11.0)
[2021-01-19 08:06] LABS: PLATELET COUNT 163 X10'3 (140-440)
[2021-01-19 08:10] LABS: ALANINE AMINOTRANSFERASE 45 U/L (12-78); ALBUMIN 3.3 G/DL (3.4-5.0); ALKALINE PHOSPHATASE 256 IU/L (46-116); ANION GAP 14 (8-16); ASPARTATE AMINO TRANSFERASE 22 U/L (10-37); BILIRUBIN,TOTAL 0.5 MG/DL (0.1-1.0); BLOOD UREA NITROGEN 36 MG/DL (7-18); BUN/CREATININE RATIO 18.9 (5.4-32.0); CALCIUM 9.5 MG/DL (8.5-10.1); CHLORIDE 107 MMOL/L (99-107); GLUCOSE 126 MG/DL (70-104); POTASSIUM 3.6 MMOL/L (3.5-5.1); SODIUM 143 MMOL/L (135-145); TOTAL CARBON DIOXIDE 22.5 MMOL/L (24-32); TOTAL PROTEIN 6.7 G/DL (6.4-8.2); eGFR 35 ML/MIN
[2021-01-19] MEDS: furosemide 10 MG/1 ML 10ml inj IV SCH (09:31)
[2021-01-19] MEDS: sucralfate 1 gm tablet PO SCH (09:32)
[2021-01-24] MEDS ORDERED: Semaglutide (Ozempic) 0.5 MG SQ SCH (08:00)
[2021-02-14] MEDS ORDERED: ZINC50TA67 PO (13:25)
[2021-02-14] MEDS ORDERED: SERT50TA PO (13:25)
[2021-02-14] MEDS ORDERED: FAMO40TA7 PO (13:25)
[2021-02-14] MEDS ORDERED: CYAN500T71 PO (13:25)
[2021-02-14] MEDS ORDERED: FERR-121 PO (13:25)
[2021-02-14] MEDS ORDERED: CHOL400T57 PO (13:25)
[2021-02-14] MEDS ORDERED: POTA-207 PO (13:25)
[2021-02-14] MEDS ORDERED: ASCO-336 PO (13:25)
[2021-02-14] MEDS ORDERED: INSU100V12 SQ (14:22)
[2021-02-14] MEDS ORDERED: FURO-150 PO (14:22)
[2021-02-14] MEDS ORDERED: SEMA0.25 SQ (14:22)
[2021-02-16] MEDS ORDERED: CARV25TA2 PO (11:56)
[2021-02-16] MEDS ORDERED: MESA1.2T3 PO (11:56)
[2021-02-16] MEDS ORDERED: ROSU40TA PO (13:15)
[2021-02-16] MEDS ORDERED: ALLO100T25 PO (13:15)
[2021-02-16] MEDS ORDERED: SERT-434 PO (13:15)
== END 2021-01-19 14:33 | disposition home health service (06) | DRG 281 ==
LOC: ER 08:41 → ED HOLD 14:33 → PCU 3S 01-19 01:50
PROVIDERS: ADMIT Internal Medicine; ATTEND Family Medicine
PROC: B32T1ZZ Computerized Tomography (CT Scan) of Left Pulmonary Artery using Low Osmolar Contrast (ICD-10-PCS; principal; 2021-01-18)
PROC: B3201ZZ Computerized Tomography (CT Scan) of Thoracic Aorta using Low Osmolar Contrast (ICD-10-PCS; 2021-01-18)
PROC: B32S1ZZ Computerized Tomography (CT Scan) of Right Pulmonary Artery using Low Osmolar Contrast (ICD-10-PCS; 2021-01-18)
DX: I21.4 Non-ST elevation (NSTEMI) myocardial infarction (principal); I31.3 Pericardial effusion (noninflammatory); I42.8 Other cardiomyopathies; D64.9 Anemia, unspecified; E11.9 Type 2 diabetes mellitus without complications; I25.10 Atherosclerotic heart disease of native coronary artery without angina pectoris; I50.9 Heart failure, unspecified; Z20.822 Contact with and (suspected) exposure to COVID-19; Z95.5 Presence of coronary angioplasty implant and graft; Z95.810 Presence of automatic (implantable) cardiac defibrillator; Z88.5 Allergy status to narcotic agent; Z88.8 Allergy status to other drugs, medicaments and biological substances; Z79.899 Other long term (current) drug therapy; Z79.82 Long term (current) use of aspirin
CPT/HCPCS: 36415; 71045; 71275; 80053; 82948; 83036; 83735; 83880; 84484; 85025; 85610; 87081; 87635; 93005; 93308; 99285; G0378; J1815; J1940; Q9967

== ENCOUNTER 2021-02-02 06:52 | Day surgery (SDC) | payer MEDICARE, OTHER ==
[2021-02-01 12:45] LABS: BASOPHILS # (AUTO) 0.1 X10'3 (0-0.2); EOSINOPHILS # (AUTO) 0.1 X10'3 (0-0.9); EOSINOPHILS % (AUTO) 1.9 % (0-6); HEMATOCRIT 28.9 % (42.0-52.0); HEMOGLOBIN 9.6 g/dl (14.0-17.9); LYMPHOCYTES # (AUTO) 0.9 X10'3 (1.1-4.8); LYMPHOCYTES % (AUTO) 15.4 % (21-51); MEAN CORPUSCULAR HEMOGLOBIN 30.1 PG (27.0-31.0); MEAN CORPUSCULAR HGB CONC 33.2 g/dL (33.0-36.5); MEAN CORPUSCULAR VOLUME 90.7 FL (78-98); MEAN PLATELET VOLUME 7.1 FL (7.4-10.4); MONOCYTES # (AUTO) 0.4 X10'3 (0-0.9); MONOCYTES % (AUTO) 7.6 % (2-12); NEUTROPHILS # (AUTO) 4.3 X10'3 (1.8-7.7); NEUTROPHILS % (AUTO) 74.1 % (42-75); PLATELET COUNT 199 X10'3 (140-440); RED BLOOD COUNT 3.18 X10'6 (4.70-6.10); RED CELL DISTRIBUTION WIDTH 16.5 % (11.5-14.5); WHITE BLOOD COUNT 5.9 X10'3 (4.5-11.0)
[2021-02-01 12:59] LABS: ALBUMIN 3.7 G/DL (3.4-5.0); ANION GAP 12 (8-16); BLOOD UREA NITROGEN 41 MG/DL (7-18); BUN/CREATININE RATIO 21.2 (5.4-32.0); CALCIUM 9.2 MG/DL (8.5-10.1); CHLORIDE 107 MMOL/L (99-107); CREATININE 1.93 MG/DL (0.60-1.10); GLUCOSE 108 MG/DL (70-104); POTASSIUM 4.6 MMOL/L (3.5-5.1); SODIUM 141 MMOL/L (135-145); TOTAL CARBON DIOXIDE 22.2 MMOL/L (24-32); eGFR 34 ML/MIN
[2021-02-01 13:03] LABS: PARTIAL THROMBOPLASTIN TIME 25 SECONDS (22-32)
[2021-02-02] VITALS (35 sets, daily range): BP systolic 103–173; BP diastolic 53–87
[~2021-02-02] VITALS: Ht 185.4 cm; Wt 104.0 kg
[~2021-02-02 06:52] MED LIST changes: +ALLO100T25 PO; -CHOL200013; +CYAN-51 PO; -CYAN100097 PO; +FAMO40TA59 PO; +FERR-39 PO; -INSU100C4 SQ; +MESA1.2T PO; -MESA800T PO; -NITR0.4T SL; -POTA-207 PO; +POTA-82 PO; +ROSU40TA PO; +SACU1TAB PO; +SEMA0.25 SQ; +SERT-434 PO
[2021-02-02] MEDS ORDERED: sodium bicarbonate (8.4%) inj. 150 ML in dextrose 5%-water 1,000 ML IV ONE (07:15)
[2021-02-02] MEDS ORDERED: normal saline 1,000 ML IV SCH (07:15)
[2021-02-02] MEDS ORDERED: LIDOcaine/PRILOcaine 5gm cream TP ONE (07:20)
[2021-02-02] MEDS ORDERED: VITAMIN B12 PO (07:28)
[2021-02-02] MEDS ORDERED: NITR0.4T51 SL (07:28)
[2021-02-02] MEDS ORDERED: MESA800T PO (07:28)
[2021-02-02] MEDS ORDERED: CARV3.122 PO (07:28)
[2021-02-02] MEDS ORDERED: HYDR-3964 PO (07:28)
[2021-02-02] MEDS ORDERED: RANITIDINE HCL PO (07:28)
[2021-02-02] MEDS ORDERED: MULT-1085 PO (07:28)
[2021-02-02] MEDS ORDERED: acetylcysteine 200 MG/ml 4ml vial PO SCH (08:00)
[2021-02-02] MEDS ORDERED: iohexol 350MG/ML 100ml bottle IV ONE (08:24)
[2021-02-02] MEDS ORDERED: LIDOcaine 1% (10mg/ml)w/preservative injection 20ml MDV ONE (08:24)
[2021-02-02] MEDS ORDERED: fentaNYL/PF 50MCG/1 ML 2ML syringe ONE (08:24)
[2021-02-02] MEDS ORDERED: midazolam 1 mg/ML 2ml injection ONE (08:24)
[2021-02-02] MEDS ORDERED: iohexol 350 MG/ML 50ML vial IV ONE (08:24)
[2021-02-02] MEDS ORDERED: nitroGLYCERIN-Tridil 50MG/D5W 250 ML IV ONE (08:24)
[2021-02-02] MEDS ORDERED: heparin 1,000unit/ml 10ml vial 10 ML ONE (08:26)
[2021-02-02] MEDS ORDERED: verapamil 2.5 mg/ml inj IV ONE (08:26)
[2021-02-02 10:53] LABS: ISTAT HGB ART 8.8 g/dl (14.0-18.0); ISTAT Hct ART 26 %PCV (42-52); ISTAT O2 SATURATION ARTERIAL 99 % (95-98); ISTAT SOURCE ART
[2021-02-02] MEDS ORDERED: nitroGLYCERIN 0.4mg SUBLingual tab SL PRN (11:10)
[2021-02-02] MEDS ORDERED: metoprolol tartrate 1mg/ml inj IV PRN (11:10)
[2021-02-02] MEDS ORDERED: DOBUTamine-DoBUTrex 500mg/D5W 250 ML IV ONE (11:10)
[2021-02-02] MEDS ORDERED: normal saline 500ml IV soln 500 ML IV SCH (11:10)
[2021-02-02] MEDS ORDERED: atropine 0.1mg/ml 10ml syringe IV PRN (11:10)
[2021-02-02 13:46] LABS: ISTAT Hct MIX 26 %PCV (42-52); ISTAT O2 SATURATION MIX VENOUS 71 % (60-80); ISTAT SOURCE VEN
== END 2021-02-02 15:00 | disposition home or self-care (01) ==
LOC: SSTAY O 06:52
PROVIDERS: ATTEND Internal Medicine Cardiovascular Disease
DX: R53.83 Other fatigue (principal); R06.02 Shortness of breath; I25.10 Atherosclerotic heart disease of native coronary artery without angina pectoris; I42.0 Dilated cardiomyopathy; E11.9 Type 2 diabetes mellitus without complications; I11.0 Hypertensive heart disease with heart failure; I50.22 Chronic systolic (congestive) heart failure; E78.5 Hyperlipidemia, unspecified; I35.0 Nonrheumatic aortic (valve) stenosis; I25.2 Old myocardial infarction; I44.7 Left bundle-branch block, unspecified; J44.9 Chronic obstructive pulmonary disease, unspecified; G47.33 Obstructive sleep apnea (adult) (pediatric); E66.3 Overweight; Z68.31 Body mass index [BMI] 31.0-31.9, adult; Z95.5 Presence of coronary angioplasty implant and graft; Z88.5 Allergy status to narcotic agent; Z72.89 Other problems related to lifestyle; Z79.4 Long term (current) use of insulin; Z79.899 Other long term (current) drug therapy; Z79.82 Long term (current) use of aspirin; Z96.641 Presence of right artificial hip joint; Z98.890 Other specified postprocedural states
CPT/HCPCS: 36415; 80048; 82803; 82948; 85014; 85025; 85610; 85730; 93005; 93306; 93350; 93460; 99152; 99153; C1751; C1769; C1894; J1250; J1644; J2001; J2250; J3010; J7030; Q9967; A4620; A6258; J3490

== ENCOUNTER 2021-02-09 08:03 | Outpatient (CLI) | payer MEDICARE, OTHER ==
[~2021-02-09] VITALS: Ht 171.4 cm; Wt 97.5 kg
[~2021-02-09 08:03] MED LIST changes: -ALLO100T25 PO; +CARV3.122 PO; -CYAN-51 PO; -FAMO40TA59 PO; -FERR-39 PO; +HYDR-3964 PO; -MESA1.2T PO; +MESA800T PO; +MULT-1085 PO; +NITR0.4T51 SL; +RANITIDINE HCL PO; -ROSU40TA PO; -SERT-434 PO; +VITAMIN B12 PO
[2021-02-09 08:46] LABS: BASOPHILS # (AUTO) 0.1 X10'3 (0-0.2); BASOPHILS % (AUTO) 1.5 % (0-1); EOSINOPHILS # (AUTO) 0.2 X10'3 (0-0.9); EOSINOPHILS % (AUTO) 3.4 % (0-6); HEMATOCRIT 29.9 % (42.0-52.0); HEMOGLOBIN 9.8 g/dl (14.0-17.9); LYMPHOCYTES # (AUTO) 0.9 X10'3 (1.1-4.8); LYMPHOCYTES % (AUTO) 18.2 % (21-51); MEAN CORPUSCULAR HEMOGLOBIN 29.6 PG (27.0-31.0); MEAN CORPUSCULAR HGB CONC 32.7 g/dL (33.0-36.5); MEAN CORPUSCULAR VOLUME 90.5 FL (78-98); MEAN PLATELET VOLUME 7.5 FL (7.4-10.4); MONOCYTES # (AUTO) 0.5 X10'3 (0-0.9); MONOCYTES % (AUTO) 9.5 % (2-12); NEUTROPHILS # (AUTO) 3.3 X10'3 (1.8-7.7); NEUTROPHILS % (AUTO) 67.4 % (42-75); PLATELET COUNT 162 X10'3 (140-440); RED CELL DISTRIBUTION WIDTH 16.9 % (11.5-14.5); WHITE BLOOD COUNT 4.9 X10'3 (4.5-11.0)
[2021-02-09 08:52] LABS: PARTIAL THROMBOPLASTIN TIME 25 SECONDS (22-32)
[2021-02-09 09:01] LABS: ALANINE AMINOTRANSFERASE 21 U/L (12-78); ALBUMIN 3.7 G/DL (3.4-5.0); ALBUMIN/GLOBULIN RATIO 1.2 (1.1-1.5); ALKALINE PHOSPHATASE 133 IU/L (46-116); ANION GAP 11 (8-16); ASPARTATE AMINO TRANSFERASE 12 U/L (10-37); BILIRUBIN,TOTAL 0.4 MG/DL (0.1-1.0); BLOOD UREA NITROGEN 44 MG/DL (7-18); BUN/CREATININE RATIO 20.8 (5.4-32.0); CALCIUM 9.3 MG/DL (8.5-10.1); CHLORIDE 108 MMOL/L (99-107); CREATININE 2.12 MG/DL (0.60-1.10); GLUCOSE 134 MG/DL (70-104); POTASSIUM 4.2 MMOL/L (3.5-5.1); SODIUM 144 MMOL/L (135-145); TOTAL CARBON DIOXIDE 25.3 MMOL/L (24-32); TOTAL PROTEIN 6.9 G/DL (6.4-8.2); eGFR 31 ML/MIN
[2021-02-09] MEDS ORDERED: albuterol 2.5 MG/3 ML nebule NEB PRN (10:45)
[2021-02-09] MEDS ORDERED: IODIXANOL 320 MG/ML INFUS..BTL 100ML IV ONE (11:45)
[2021-02-09] MEDS ORDERED: IODIXANOL 320 MG/ML INFUS..BTL 50ML IV ONE (11:45)
[2021-02-14] MEDS ORDERED: ASCO-336 PO (13:25)
[2021-02-14] MEDS ORDERED: CHOL400T57 PO (13:25)
[2021-02-14] MEDS ORDERED: ZINC50TA67 PO (13:25)
[2021-02-14] MEDS ORDERED: CYAN500T71 PO (13:25)
[2021-02-14] MEDS ORDERED: SERT50TA PO (13:25)
[2021-02-14] MEDS ORDERED: POTA-207 PO (13:25)
[2021-02-14] MEDS ORDERED: FERR-121 PO (13:25)
[2021-02-14] MEDS ORDERED: FAMO40TA7 PO (13:25)
[2021-02-14] MEDS ORDERED: SEMA0.25 SQ (14:22)
[2021-02-14] MEDS ORDERED: INSU100V12 SQ (14:22)
[2021-02-14] MEDS ORDERED: FURO-150 PO (14:22)
[2021-02-16] MEDS ORDERED: CARV25TA2 PO (11:56)
[2021-02-16] MEDS ORDERED: MESA1.2T3 PO (11:56)
[2021-02-16] MEDS ORDERED: ROSU40TA PO (13:15)
[2021-02-16] MEDS ORDERED: SERT-434 PO (13:15)
[2021-02-16] MEDS ORDERED: ALLO100T25 PO (13:15)
== END 2021-02-09 23:59 | disposition home or self-care (01) ==
LOC: VAS 08:03
PROVIDERS: ATTEND Internal Medicine Cardiovascular Disease
DX: N40.0 Benign prostatic hyperplasia without lower urinary tract symptoms (principal); K40.90 Unilateral inguinal hernia, without obstruction or gangrene, not specified as recurrent; M19.90 Unspecified osteoarthritis, unspecified site; N20.0 Calculus of kidney; N28.1 Cyst of kidney, acquired; K76.0 Fatty (change of) liver, not elsewhere classified; I31.3 Pericardial effusion (noninflammatory); I26.99 Other pulmonary embolism without acute cor pulmonale; K44.9 Diaphragmatic hernia without obstruction or gangrene; I51.7 Cardiomegaly; I25.10 Atherosclerotic heart disease of native coronary artery without angina pectoris; I70.0 Atherosclerosis of aorta; J43.9 Emphysema, unspecified; M85.88 Other specified disorders of bone density and structure, other site; Z20.822 Contact with and (suspected) exposure to COVID-19
CPT/HCPCS: 36415; 71046; 71275; 74174; 80053; 85025; 85610; 85730; 87635; 93880; 94060; 94727; 94729; 94760; C9803; Q9967

== ENCOUNTER 2021-02-17 05:23 | Inpatient (IN) | payer MEDICARE, OTHER ==
[2021-02-14 14:46] LABS: BASOPHILS # (AUTO) 0.1 X10'3 (0-0.2); BASOPHILS % (AUTO) 1.4 % (0-1); EOSINOPHILS # (AUTO) 0.2 X10'3 (0-0.9); EOSINOPHILS % (AUTO) 3.5 % (0-6); LYMPHOCYTES # (AUTO) 1.3 X10'3 (1.1-4.8); LYMPHOCYTES % (AUTO) 26.1 % (21-51); MEAN CORPUSCULAR HEMOGLOBIN 29.7 PG (27.0-31.0); MEAN CORPUSCULAR HGB CONC 33.6 g/dL (33.0-36.5); MEAN CORPUSCULAR VOLUME 88.2 FL (78-98); MEAN PLATELET VOLUME 7.5 FL (7.4-10.4); MONOCYTES # (AUTO) 0.6 X10'3 (0-0.9); MONOCYTES % (AUTO) 12.3 % (2-12); NEUTROPHILS # (AUTO) 2.7 X10'3 (1.8-7.7); NEUTROPHILS % (AUTO) 56.7 % (42-75); PRE OP HEMATOCRIT 32.4 % (42.0-52.0); PRE OP PLATELET COUNT 187 X10'3 (140-440); RED BLOOD COUNT 3.67 X10'6 (4.70-6.10); RED CELL DISTRIBUTION WIDTH 16.7 % (11.5-14.5)
[2021-02-14 14:48] LABS: PRE OP PROTIME 10.7 SECONDS (9.0-12.0)
[2021-02-14 14:50] LABS: ALBUMIN 3.9 G/DL (3.4-5.0); ALBUMIN/GLOBULIN RATIO 1.1 (1.1-1.5); ALKALINE PHOSPHATASE 137 IU/L (46-116); BLOOD UREA NITROGEN 56 MG/DL (7-18); BUN/CREATININE RATIO 23.5 (5.4-32.0); CALCIUM 9.5 MG/DL (8.5-10.1); CHLORIDE 108 MMOL/L (99-107); CREATININE 2.38 MG/DL (0.60-1.10); PRE OP ALT 19 U/L (30-65); PRE OP ANION GAP 9 (8-16); PRE OP AST 15 U/L (10-37); PRE OP BILIRUB, TOTAL 0.3 MG/DL (0.0-1.0); PRE OP GLUCOSE 88 MG/DL (70-104); PRE OP POTASSIUM 4.6 MMOL/L (3.4-5.1); PRE OP SODIUM 142 MMOL/L (135-145); TOTAL PROTEIN 7.5 G/DL (6.4-8.2); eGFR 27 ML/MIN
[2021-02-14 15:00] LABS: UA COLLECTION TYPE CLN CATCH MIDSTREAM
[2021-02-14 15:01] LABS: CLARITY,URINE CLEAR (Clear); COLOR,URINE Yellow (Yellow); GLUCOSE, URINE NEGATIVE (Neg); KETONES,URINE NEGATIVE (Neg); LEUKOCYTE ESTERASE ,URINE NEGATIVE (Neg); NITRITES, URINE NEGATIVE (Neg); OCCULT BLOOD,URINE NEGATIVE (Neg); PROTEIN,URINE NEGATIVE (Neg); UROBILINOGEN,URINE 0.2 E.U/dL (0.2-1.0)
[2021-02-14 15:07] LABS: PRE OP HEMOGLOBIN 10.9 g/dL (14.0-17.9)
[2021-02-17] VITALS (25 sets, daily range): BP systolic 94–143; BP diastolic 56–80
[~2021-02-17] VITALS: Ht 180.3 cm; Wt 104.8 kg
[~2021-02-17 05:23] MED LIST changes: +ALLO100T25 PO; +ASCO-336 PO; +CARV25TA2 PO; -CARV3.122 PO; +CHOL400T57 PO; +CYAN500T71 PO; +FAMO40TA7 PO; +FERR-121 PO; +FURO-150 PO; -FURO40TA4 PO; -HYDR-3964 PO; +MESA1.2T3 PO; -MESA800T PO; -MULT-1085 PO; +POTA-207 PO; -POTA-82 PO; -RANITIDINE HCL PO; +ROSU40TA PO; +SERT-434 PO; -VITAMIN B12 PO; +ZINC50TA67 PO; +ringers solution, lacted 1,000 ML IV SCH
[2021-02-17] MEDS ORDERED: albuterol 2.5 MG/3 ML nebule NEB ONE (05:30)
[2021-02-17] MEDS ORDERED: cefazolin/dext.iso 2gm/50ml 50 ML IV ONE (05:30)
[2021-02-17] MEDS ORDERED: DOCUMENT DATE & TIME OF BETA-BLOCKER PO ONE (05:30)
[2021-02-17] MEDS ORDERED: ondansetron/PF 4mg/2ml inj IV PRN ×3 (05:30→08:40)
[2021-02-17] MEDS ORDERED: aspirin 325mg tablet PO ONE (05:30)
[2021-02-17] MEDS ORDERED: LIDOcaine 1% (10mg/ml) 2ml vial ONE (05:51)
[2021-02-17] MEDS ORDERED: nitroPRUSSIDE (NIPRIDE) (200MCG/ML) 100ML Drip IV SCH (06:00)
[2021-02-17] MEDS ORDERED: phenylephrine inj 50 MG in normal saline 250ml IV soln 245 ML IV SCH (06:00)
[2021-02-17] MEDS ORDERED: famotidine 20mg tablet PO ONE (06:00)
[2021-02-17] MEDS ORDERED: protamine sulfate 10mg/ml inj. ONE (06:13)
[2021-02-17] MEDS ORDERED: LIDOcaine 1% (10mg/ml)w/preservative injection 20ml MDV ONE (06:19)
[2021-02-17] MEDS ORDERED: iohexol 350MG/ML 100ml bottle IV ONE (06:19)
[2021-02-17] MEDS ORDERED: iohexol 350 MG/ML 50ML vial IV ONE (06:19)
[2021-02-17] MEDS ORDERED: heparin 1,000 UNITS/NS 500ml 1,500 ML ONE (06:19)
[2021-02-17] MEDS ORDERED: fentaNYL/PF 50MCG/1 ML 2ML syringe ONE (07:04)
[2021-02-17] MEDS ORDERED: midazolam 1 mg/ML 2ml injection ONE (07:05)
[2021-02-17] MEDS ORDERED: succinylcholine 20mg/ml inj IV ONE (07:16)
[2021-02-17] MEDS ORDERED: etomidate 2mg/ml inj. ONE (07:16)
[2021-02-17] MEDS ORDERED: rocuronium 10mg/ml inj IV ONE ×2 (07:21→07:22)
[2021-02-17] MEDS ORDERED: nitroGLYCERIN 0.4mg SUBLingual tab SL PRN (07:25)
[2021-02-17] MEDS ORDERED: ePHEDrine 50MG/ML INJ. ONE (07:28)
[2021-02-17] MEDS ORDERED: carVEDilol 12.5mg tablet PO SCH (07:30)
[2021-02-17] MEDS ORDERED: heparin 1,000unit/ml 10ml vial 10 ML ONE (07:34)
[2021-02-17] MEDS ORDERED: hydrALAZINE 20mg/ml inj. IV PRN ×2 (07:40→08:40)
[2021-02-17] MEDS ORDERED: enalaprilat dihydrate 2.5mg/2ml vial IV PRN (07:40)
[2021-02-17] MEDS ORDERED: fentaNYL/PF 50MCG/1 ML 2ML syringe IV PRN ×2 (07:40)
[2021-02-17] MEDS ORDERED: HYDROmorphone/PF 0.2 MG/ML SYRINGE IV PRN ×2 (07:40)
[2021-02-17] MEDS ORDERED: ringers solution, lacted 1,000 ML IV SCH (07:40)
[2021-02-17] MEDS ORDERED: neostigmine methylsulfate 1 MG/ML 10ml vial ONE (07:50)
[2021-02-17] MEDS ORDERED: glycopyrrolate 0.2mg/ml inj ONE (07:50)
[2021-02-17] MEDS ORDERED: potassium Cl 20 mEq SR tablet PO SCH (08:00)
[2021-02-17] MEDS ORDERED: ZINC PO SCH (08:00)
[2021-02-17] MEDS ORDERED: atorvastatin 20mg tablet PO SCH (08:00)
[2021-02-17] MEDS ORDERED: cholecalciferol (vitamin D3) 1,000 unit (25mcg) tablet PO SCH (08:00)
[2021-02-17] MEDS ORDERED: tamsulosin 0.4mg capsule PO SCH (08:00)
[2021-02-17] MEDS ORDERED: sertraline 50mg tablet PO SCH (08:00)
[2021-02-17] MEDS ORDERED: ascorbic acid 500mg tablet PO SCH (08:00)
[2021-02-17] MEDS ORDERED: allopurinol 100mg tablet PO SCH (08:00)
[2021-02-17] MEDS ORDERED: sucralfate 1 gm tablet PO SCH (08:00)
[2021-02-17] MEDS ORDERED: ferrous sulfate 325mg tablet PO SCH (08:00)
[2021-02-17] MEDS ORDERED: HYDROcodone/acetaminophen 5mg/325mg tablet PO PRN (08:40)
[2021-02-17] MEDS ORDERED: insulin Lispro (HumaLOG) vial - multi-dose SQ SCH (08:40)
[2021-02-17] MEDS ORDERED: insulin regular, human U-100 3ml vial - multi-dose SQ SCH (08:40)
[2021-02-17] MEDS ORDERED: ALPRAZolam 0.25mg tablet PO PRN (08:40)
[2021-02-17] MEDS ORDERED: diphenhydrAMINE 25mg capsule PO PRN (08:40)
[2021-02-17] MEDS ORDERED: dextrose 50%-water 50ml dispensing syringe IV PRN ×2 (08:40)
[2021-02-17] MEDS ORDERED: potassium Cl 20 mEq SR tablet PO PRN (08:40)
[2021-02-17] MEDS ORDERED: normal saline 1000ml 1,000 ML IV SCH (08:40)
[2021-02-17] MEDS ORDERED: acetaminophen 325mg tablet PO PRN (08:40)
[2021-02-17] MEDS ORDERED: labetalol 20mg/4ml (5mg/ml) syringe IV PRN (08:40)
[2021-02-17] MEDS ORDERED: docusate sod 100mg capsule PO PRN (08:40)
[2021-02-17] MEDS ORDERED: potassium CL 10mEq/100ml bag 100 ML IV PRN (08:40)
[2021-02-17] MEDS ORDERED: magnesium 4gm in 100ml NS 100 ML IV PRN (08:40)
[2021-02-17] MEDS ORDERED: MESSAGE TO PHARMACY PO ONE (08:40)
[2021-02-17] MEDS ORDERED: glucagon, human recombinant 1mg kit SUBCUT PRN (08:40)
[2021-02-17] MEDS ORDERED: magnesium 2GM in 50ml NS 50 ML IV PRN (08:40)
[2021-02-17] MEDS ORDERED: dextrose ORAL solution 15 GM/59 ML bottle PO PRN ×2 (08:40)
[2021-02-17] MEDS ORDERED: potassium Cl 40MEQ/1/2NS 520ml 520 ML IV PRN (08:40)
--- NOTE | 2021-02-17 08:45 | NUR ---
Received from OR via BED, accompanied by Anesthesiologist DR. BERTRAND and report given by Anesthesiolgist AND OR NURSE. PT ARRIVED DROWSY ON 10L 02 VIA MASK. 18G IV TO RIGHT WRIST, ART LINE TO LEFT WRIST. LR AND [place] RUNNING. BILAT INGUINAL SITES ASSESSED. SCANT BLOOD NOTED ON LEFT SIDE CONTAINED WITHIN DRESSING AND WILL CONTINUE TO ASSESS, RIGHT SIDE IS C/D/I. VSS. NO PAIN OR NAUSEA NOTED. 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 Addendum: 02/17/21 at 0915 by Nata Brandon RN Amended: Links added.
--- NOTE | 2021-02-17 09:40 | NUR ---
BILAT INGUINAL SITES UNCHANGED, DRAINAGE ON LEFT SIDE HAS STAYED THE SAME. PEDAL PULSES PALPABLE, STRONG AND EQUAL. NEURO CHECK COMPLETED, NO DEFICITS NOTED. Addendum: 02/17/21 at 0946 by Nata Brandon RN Amended: Links added.
--- NOTE | 2021-02-17 10:35 | NUR ---
Report called to receiving nurse KIERAN. Transferred via BED. Belongings, PHONE, GLASSES, CPAP AND CLOTHING SENT WITH PT TO ROOM. Special Issues communicated to receiving nurse. PT VSS. PT STATUS UNCHANGED. RN AT BEDSIDE TO ASSUME CARE. BED IN LOW POSITION, 2 RAILS UP, CALL LIGHT IN REACH. Addendum: 02/17/21 at 1116 by Nata Brandon RN Amended: Links added.
[2021-02-17] MEDS: ferrous sulfate 325mg tablet PO SCH (12:41)
[2021-02-17] MEDS: atorvastatin 20mg tablet PO SCH (12:41)
[2021-02-17] MEDS: tamsulosin 0.4mg capsule PO SCH (12:42)
[2021-02-17] MEDS: ascorbic acid 500mg tablet PO SCH (12:42)
[2021-02-17] MEDS: cholecalciferol (vitamin D3) 1,000 unit (25mcg) tablet PO SCH (12:43)
[2021-02-17] MEDS: allopurinol 100mg tablet PO SCH (12:43)
[2021-02-17] MEDS: cyanocobalamin 500mcg tablet PO SCH (12:46)
[2021-02-17] MEDS: sertraline 50mg tablet PO SCH (12:47)
[2021-02-17] MEDS: ceFAZolin 1GM/D5W- ADD-VANTAGE 50 ML IV SCH (15:56)
[2021-02-17] MEDS: carVEDilol 12.5mg tablet PO SCH (17:49)
[2021-02-17] MEDS: sod chloride 0.9% 10ml flush syringe IV SCH (17:50)
--- NOTE | 2021-02-17 18:37 | NUR ---
Problems reprioritized. Patient report given, questions answered & plan of care reviewed with VALENTE Paula.
[2021-02-17] MEDS: vancomycin/NS 1 GM ADD-VANTAGE 250 ML IV SCH (20:00)
[2021-02-17] MEDS: sacubitril/valsartan 24mg-26mg tablet PO SCH ×2 (20:00→21:09)
[2021-02-17] MEDS ORDERED: insulin glargine (Lantus) pen - multi-dose SQ SCH ×2 (21:00)
[2021-02-17] MEDS: sucralfate 1 gm tablet PO SCH (21:09)
[2021-02-18 02:00] VITALS: BP 104/61
[2021-02-18 05:57] LABS: BASOPHILS # (AUTO) 0.1 X10'3 (0-0.2); BASOPHILS % (AUTO) 0.9 % (0-1); EOSINOPHILS # (AUTO) 0.2 X10'3 (0-0.9); EOSINOPHILS % (AUTO) 2.9 % (0-6); HEMATOCRIT 29.5 % (42.0-52.0); HEMOGLOBIN 9.9 g/dl (14.0-17.9); LYMPHOCYTES % (AUTO) 15.4 % (21-51); MEAN CORPUSCULAR HGB CONC 33.6 g/dL (33.0-36.5); MEAN CORPUSCULAR VOLUME 89.3 FL (78-98); MEAN PLATELET VOLUME 7.8 FL (7.4-10.4); MONOCYTES # (AUTO) 0.6 X10'3 (0-0.9); NEUTROPHILS # (AUTO) 4.6 X10'3 (1.8-7.7); NEUTROPHILS % (AUTO) 71.8 % (42-75); PLATELET COUNT 176 X10'3 (140-440); RED BLOOD COUNT 3.31 X10'6 (4.70-6.10); RED CELL DISTRIBUTION WIDTH 16.1 % (11.5-14.5); WHITE BLOOD COUNT 6.4 X10'3 (4.5-11.0)
[2021-02-18 06:00] VITALS: BP 111/56
[2021-02-18 06:15] LABS: ALANINE AMINOTRANSFERASE 15 U/L (12-78); ALBUMIN 3.2 G/DL (3.4-5.0); ALKALINE PHOSPHATASE 98 IU/L (46-116); ANION GAP 10 (8-16); ASPARTATE AMINO TRANSFERASE 15 U/L (10-37); BILIRUBIN,TOTAL 0.3 MG/DL (0.1-1.0); BLOOD UREA NITROGEN 45 MG/DL (7-18); BUN/CREATININE RATIO 24.6 (5.4-32.0); CALCIUM 9.2 MG/DL (8.5-10.1); CHLORIDE 107 MMOL/L (99-107); CREATININE 1.83 MG/DL (0.60-1.10); GLUCOSE 148 MG/DL (70-104); MAGNESIUM 2.4 MG/DL (1.5-2.4); POTASSIUM 3.7 MMOL/L (3.5-5.1); SODIUM 140 MMOL/L (135-145); TOTAL PROTEIN 6.4 G/DL (6.4-8.2); eGFR 36 ML/MIN
[2021-02-18] MEDS ORDERED: pantoprazole 40mg Tablet.DR PO PRN (07:30)
[2021-02-18] MEDS: mesalamine 1.2gm ER tablet PO SCH ×2 (08:00→08:21)
[2021-02-18] MEDS: ceFAZolin 1GM/D5W- ADD-VANTAGE 50 ML IV SCH ×2 (08:00→08:17)
[2021-02-18] MEDS ORDERED: aspirin 325mg tablet, delayed-release (Ecotrin) PO SCH (08:00)
[2021-02-18] MEDS: sod chloride 0.9% 10ml flush syringe IV SCH (08:00)
[2021-02-18] MEDS ORDERED: famotidine 20mg tablet PO SCH (08:00)
[2021-02-18] MEDS: atorvastatin 20mg tablet PO SCH (08:19)
[2021-02-18] MEDS: cyanocobalamin 500mcg tablet PO SCH (08:20)
[2021-02-18] MEDS: sacubitril/valsartan 24mg-26mg tablet PO SCH (08:21)
[2021-02-18] MEDS: ascorbic acid 500mg tablet PO SCH (08:23)
[2021-02-18] MEDS: sucralfate 1 gm tablet PO SCH (08:23)
[2021-02-18] MEDS: sertraline 50mg tablet PO SCH (08:23)
[2021-02-18] MEDS: tamsulosin 0.4mg capsule PO SCH (08:25)
[2021-02-18] MEDS: carVEDilol 12.5mg tablet PO SCH (08:25)
[2021-02-18] MEDS: cholecalciferol (vitamin D3) 1,000 unit (25mcg) tablet PO SCH (08:25)
[2021-02-18] MEDS: allopurinol 100mg tablet PO SCH (08:25)
[2021-02-18] MEDS: ferrous sulfate 325mg tablet PO SCH (08:26)
[2021-02-18] MEDS: vancomycin/NS 1 GM ADD-VANTAGE 250 ML IV SCH (09:37)
[2021-02-18 11:00] VITALS: BP 117/58
--- NOTE | 2021-02-18 13:25 | NUR ---
Pt stable for D/C Pt stable for D/C - all d/c ppwk reviewed with pt and pt verbalized understanding. Follow up appts were reviewed in detail and pt verbalized understanding. PIV was removed from R wrist and pt tolerated well. Mobile 66 leads were removed from pt. NO New RX. Pt was able to get dressed by himself. All personal belongings were bagged and sent with patient. Pt was wheeled out to private vehicle where family was waiting.
== END 2021-02-18 13:00 | disposition home or self-care (01) | DRG 266 ==
LOC: PAS IN 05:23 → UNDOADMIN 05:23 → PAS IN 08:42 → EDSTATUS 10:30 → PCU 3S 10:34 → PAS IN 10:34 → UNDODISIN 02-18 13:00
PROVIDERS: ADMIT Internal Medicine Cardiovascular Disease; ATTEND Internal Medicine Cardiovascular Disease
PROC: 03HY32Z Insertion of Monitoring Device into Upper Artery, Percutaneous Approach (ICD-10-PCS; 2021-02-17)
PROC: B41F1ZZ Fluoroscopy of Right Lower Extremity Arteries using Low Osmolar Contrast (ICD-10-PCS; 2021-02-17)
PROC: B41G1ZZ Fluoroscopy of Left Lower Extremity Arteries using Low Osmolar Contrast (ICD-10-PCS; 2021-02-17)
PROC: B3101ZZ Fluoroscopy of Thoracic Aorta using Low Osmolar Contrast (ICD-10-PCS; 2021-02-17)
PROC: 02RF38Z Replacement of Aortic Valve with Zooplastic Tissue, Percutaneous Approach (ICD-10-PCS; principal; 2021-02-17 07:05)
DX: I35.0 Nonrheumatic aortic (valve) stenosis (principal); Z00.6 Encounter for examination for normal comparison and control in clinical research program; I50.23 Acute on chronic systolic (congestive) heart failure; I42.0 Dilated cardiomyopathy; K50.90 Crohn's disease, unspecified, without complications; E11.9 Type 2 diabetes mellitus without complications; E78.5 Hyperlipidemia, unspecified; G47.33 Obstructive sleep apnea (adult) (pediatric); I70.0 Atherosclerosis of aorta; K21.9 Gastro-esophageal reflux disease without esophagitis; D64.9 Anemia, unspecified; N28.9 Disorder of kidney and ureter, unspecified; J44.9 Chronic obstructive pulmonary disease, unspecified; I25.10 Atherosclerotic heart disease of native coronary artery without angina pectoris; I11.0 Hypertensive heart disease with heart failure; Z95.5 Presence of coronary angioplasty implant and graft; Z95.810 Presence of automatic (implantable) cardiac defibrillator; Z88.5 Allergy status to narcotic agent; Z88.1 Allergy status to other antibiotic agents; Z79.899 Other long term (current) drug therapy
CPT/HCPCS: 33361; 36415; 71045; 80053; 81003; 82948; 83036; 83735; 83880; 85025; 85347; 85610; 85730; 86885; 86900; 86901; 86920; 87081; 93005; 93308; A4618; A6258; A6449; C1756; C1760; C1769; C1894; G0378; J0330; J0690; J1644; J1815; J2001; J2250; J2370; J2710; J2720; J3010; J3370; J3490; J7030; J7040; J7050; J7120; Q9967

== ENCOUNTER 2021-03-31 11:43 | Outpatient (CLI) | payer MEDICARE, OTHER ==
[~2021-03-31 11:43] MED LIST changes: -ringers solution, lacted 1,000 ML IV SCH
--- NOTE | 2021-03-31 17:45 | NUR ---
Patient was seen today for TAVR follow-up with Dr. Vázquez. KCCQ12 completed. Walk test completed. Vital signs measured. Echo and EKG done in clinic and reviewed with patient along with current condition of patients.
== END 2021-03-31 23:59 | disposition home or self-care (01) ==
LOC: CARD DIAG 11:43
PROVIDERS: ATTEND Internal Medicine Cardiovascular Disease
DX: I34.0 Nonrheumatic mitral (valve) insufficiency (principal); R94.31 Abnormal electrocardiogram [ECG] [EKG]; Z95.2 Presence of prosthetic heart valve; Z48.812 Encounter for surgical aftercare following surgery on the circulatory system
CPT/HCPCS: 93005; 93306

== ENCOUNTER 2022-07-25 09:03 | Outpatient (CLI) | payer MEDICARE, OTHER | END 2022-07-25 23:59 | disposition home or self-care (01) | LOC: CARD DIAG 09:03 | PROVIDERS: ATTEND Internal Medicine Cardiovascular Disease | DX: I08.0 Rheumatic disorders of both mitral and aortic valves (principal); R06.02 Shortness of breath; I42.0 Dilated cardiomyopathy; Z95.2 Presence of prosthetic heart valve | CPT/HCPCS: 93306 ==

== ENCOUNTER 2023-05-01 05:38 | Observation (INO) | payer BC, MEDICARE, OTHER ==
[2023-04-25 16:36] LABS: BASOPHILS # (AUTO) 0.1 X10'3 (0-0.2); BASOPHILS % (AUTO) 0.9 % (0-1); BILIRUBIN,URINE NEGATIVE (Neg); CLARITY,URINE CLEAR (Clear); COLOR,URINE STRAW (Yellow); EOSINOPHILS # (AUTO) 0.1 X10'3 (0-0.9); EOSINOPHILS % (AUTO) 1.1 % (0-6); GLUCOSE, URINE NEGATIVE (Neg); KETONES,URINE NEGATIVE (Neg); LEUKOCYTE ESTERASE ,URINE NEGATIVE (Neg); LYMPHOCYTES # (AUTO) 1.5 X10'3 (1.1-4.8); LYMPHOCYTES % (AUTO) 19.3 % (21-51); MEAN CORPUSCULAR HEMOGLOBIN 30.1 PG (27.0-31.0); MEAN CORPUSCULAR HGB CONC 32.9 g/dL (33.0-36.5); MEAN CORPUSCULAR VOLUME 91.6 FL (78-98); MONOCYTES # (AUTO) 0.6 X10'3 (0-0.9); MONOCYTES % (AUTO) 8.4 % (2-12); NEUTROPHILS # (AUTO) 5.4 X10'3 (1.8-7.7); NEUTROPHILS % (AUTO) 70.3 % (42-75); NITRITES, URINE NEGATIVE (Neg); OCCULT BLOOD,URINE NEGATIVE (Neg); PH,URINE 5.5 (4.8-8.0); PRE OP HEMATOCRIT 38.6 % (42.0-52.0); PRE OP HEMOGLOBIN 12.7 g/dL (14.0-17.9); PRE OP PLATELET COUNT 162 X10'3 (140-440); PRE OP WHITE BLOOD COUNT 7.7 10'3 (4.8-10.8); PROTEIN,URINE NEGATIVE (Neg); RED BLOOD COUNT 4.21 X10'6 (4.70-6.10); RED CELL DISTRIBUTION WIDTH 15.8 % (11.5-14.5); UROBILINOGEN,URINE 0.2 E.U/dL (0.2-1.0)
[2023-04-25 16:37] LABS: UA COLLECTION TYPE CLN CATCH MIDSTREAM
[2023-04-25 16:41] LABS: ALBUMIN 3.7 G/DL (3.4-5.0); ALKALINE PHOSPHATASE 71 IU/L (46-116); BLOOD UREA NITROGEN 55 MG/DL (7-18); BUN/CREATININE RATIO 21.1 (10.0-20.0); CALCIUM 9.7 MG/DL (8.5-10.1); CHLORIDE 104 MMOL/L (99-107); CREATININE 2.61 MG/DL (0.60-1.10); PRE OP ALT 17 U/L (30-65); PRE OP ANION GAP 8 (8-16); PRE OP AST 21 U/L (10-37); PRE OP BILIRUB, TOTAL 0.6 MG/DL (0.0-1.0); PRE OP GLUCOSE 97 MG/DL (70-104); PRE OP POTASSIUM 4.5 MMOL/L (3.4-5.1); PRE OP SODIUM 137 MMOL/L (135-145); TOTAL CARBON DIOXIDE 24.6 MMOL/L (24-32); TOTAL PROTEIN 7.4 G/DL (6.4-8.2); eGFR 24 ML/MIN
[2023-04-25 16:57] LABS: HEMOGLOBIN A1C 6.7 % (4.5-6.2)
[2023-04-25 17:08] LABS: PRE OP PROTIME 10.4 SECONDS (9.0-12.0)
[~2023-05-01] VITALS: Ht 180.3 cm; Wt 93.0 kg
[2023-05-01] VITALS (34 sets, daily range): BP systolic 87–119; BP diastolic 60–78; PULSE 69–104; RESP 12–20; TEMP 97.6–98.9; O2SAT 93–100
[~2023-05-01 05:38] MED LIST changes: +ATOR-2 PO; +DOCUMENT DATE & TIME OF BETA-BLOCKER PO ONE; -ROSU40TA PO; -ZINC50TA67 PO; +cefazolin 2gm/D5W 100mL 100 ML IV ONE; +famotidine 20mg tablet PO ONE; +normal saline 1000ml 1,000 ML IV SCH; +tranexamic acid inj. 1,000 MG in normal saline IV soln 100ML IV ONE
[2023-05-01] MEDS ORDERED: tranexamic acid 100mg/ml inj. ONE (07:03)
[2023-05-01] MEDS ORDERED: vancomycin 1,000mg inj ONE (07:03)
[2023-05-01] MEDS ORDERED: naloxone 0.4 mg/ml inj IV PRN (07:20)
[2023-05-01] MEDS ORDERED: magnesium hydroxide 30ml (MOM) UD suspension PO PRN (07:20)
[2023-05-01] MEDS ORDERED: diphenhydrAMINE 25mg capsule PO PRN (07:20)
[2023-05-01] MEDS ORDERED: ondansetron/PF 4mg/2ml inj IV PRN ×2 (07:20→09:20)
[2023-05-01] MEDS ORDERED: acetaminophen 325mg tablet PO PRN (07:20)
[2023-05-01] MEDS ORDERED: bisacodyl 10mg suppository rectal RC PRN (07:20)
[2023-05-01] MEDS ORDERED: cloNIDine hcl/PF 100mcg/ml inj ONE (07:23)
[2023-05-01] MEDS ORDERED: fentaNYL/PF 50MCG/1 ML 2ML syringe ONE (07:26)
[2023-05-01] MEDS ORDERED: midazolam 1 mg/ML 2ml injection ONE (07:27)
[2023-05-01] MEDS ORDERED: ROPIVAcaine 0.5% (5mg/ml) 30ml vial ONE (07:27)
[2023-05-01] MEDS ORDERED: propofol inj 20 ML IV ONE (07:27)
[2023-05-01] MEDS ORDERED: EPHEDRINE SULFATE/0.9% NACL/PF 50 MG/5 ML ML IJ ONE (07:29)
[2023-05-01] MEDS ORDERED: sevoflurane 250ml liquid IH ONE (07:29)
[2023-05-01] MEDS ORDERED: cefazolin 2gm/D5W 100mL 100 ML IV SCH (08:00)
[2023-05-01] MEDS ORDERED: meperidine/PF 25mg/ml syringe IV PRN ×3 (09:20)
[2023-05-01] MEDS ORDERED: HYDROmorphone/PF 0.2 MG/ML SYRINGE IV PRN ×2 (09:20)
[2023-05-01] MEDS ORDERED: ringers solution, lacted 1,000 ML IV SCH (09:20)
[2023-05-01] MEDS ORDERED: nitroGLYCERIN 0.4mg SUBLingual tab SL SCH (11:40)
[2023-05-01] MEDS ORDERED: insulin Lispro (HumaLOG) vial - multi-dose SQ SCH (15:45)
[2023-05-01] MEDS ORDERED: MESSAGE TO PHARMACY PO ONE (15:45)
[2023-05-01] MEDS ORDERED: DEXTROSE 15 GM of carb/4 tabs (each vial/BOTTLE has 4 tablets) PO PRN ×2 (15:45)
[2023-05-01] MEDS ORDERED: dextrose 50%-water 50ml dispensing syringe IV PRN ×2 (15:45)
[2023-05-01] MEDS ORDERED: glucagon, human recombinant 1mg kit SUBCUT PRN (15:45)
[2023-05-01] MEDS: cefazolin 2gm/D5W 100mL 100 ML IV SCH ×2 (17:46→23:23)
[2023-05-01] MEDS: carVEDilol 12.5mg tablet PO SCH (20:00)
[2023-05-01] MEDS: sacubitril/valsartan 24mg-26mg tablet PO SCH (20:00)
[2023-05-01] MEDS: sucralfate 1 gm tablet PO SCH (20:36)
[2023-05-01] MEDS: potassium cl 20mEq in 1/2 NS 1,000 ML IV SCH ×2 (20:44→23:24)
[2023-05-01] MEDS ORDERED: insulin glargine (Lantus) pen - multi-dose SQ SCH ×2 (21:00)
[2023-05-01] MEDS: HYDROcodone/acetaminophen 10/325mg tab PO PRN (23:19)
[2023-05-02 02:00] VITALS: BP 111/70; PULSE 97; RESP 20; TEMP 97.9; O2SAT 92
[2023-05-02] MEDS: HYDROcodone/acetaminophen 10/325mg tab PO PRN ×3 (03:33→14:36)
[2023-05-02 06:00] VITALS: BP 98/60; PULSE 90; RESP 16; TEMP 98.1; O2SAT 95
[2023-05-02 07:10] LABS: BASOPHILS % (AUTO) 0.5 % (0-1); EOSINOPHILS % (AUTO) 0.3 % (0-6); HEMATOCRIT 30.4 % (42.0-52.0); HEMOGLOBIN 10.2 g/dl (14.0-17.9); LYMPHOCYTES # (AUTO) 1.2 X10'3 (1.1-4.8); LYMPHOCYTES % (AUTO) 12.1 % (21-51); MEAN CORPUSCULAR HEMOGLOBIN 30.5 PG (27.0-31.0); MEAN CORPUSCULAR HGB CONC 33.6 g/dL (33.0-36.5); MEAN CORPUSCULAR VOLUME 90.8 FL (78-98); MEAN PLATELET VOLUME 7.9 FL (7.4-10.4); MONOCYTES # (AUTO) 0.9 X10'3 (0-0.9); MONOCYTES % (AUTO) 9.5 % (2-12); NEUTROPHILS # (AUTO) 7.5 X10'3 (1.8-7.7); NEUTROPHILS % (AUTO) 77.6 % (42-75); PLATELET COUNT 123 X10'3 (140-440); RED BLOOD COUNT 3.35 X10'6 (4.70-6.10); RED CELL DISTRIBUTION WIDTH 15.6 % (11.5-14.5); WHITE BLOOD COUNT 9.6 X10'3 (4.5-11.0)
[2023-05-02 07:26] LABS: ANION GAP 10 (8-16); CHLORIDE 102 MMOL/L (99-107); POTASSIUM 4.4 MMOL/L (3.5-5.1); SODIUM 135 MMOL/L (135-145); TOTAL CARBON DIOXIDE 23.2 MMOL/L (24-32)
[2023-05-02 07:50] LABS: BLOOD UREA NITROGEN 52 MG/DL (7-18); CREATININE 2.67 MG/DL (0.60-1.10); eCRCL 25 ML/MIN; eGFR 23 ML/MIN
[2023-05-02] MEDS ORDERED: potassium Cl 20 mEq SR tablet PO SCH (08:00)
[2023-05-02] MEDS ORDERED: mesalamine 1.2gm ER tablet PO SCH (08:00)
[2023-05-02] MEDS: sacubitril/valsartan 24mg-26mg tablet PO SCH (08:00)
[2023-05-02] MEDS ORDERED: cyanocobalamin 500mcg tablet PO SCH (08:00)
[2023-05-02] MEDS: carVEDilol 12.5mg tablet PO SCH (08:00)
[2023-05-02] MEDS ORDERED: aspirin 325mg tablet, delayed-release (Ecotrin) PO SCH (08:00)
[2023-05-02] MEDS ORDERED: furosemide 20MG tablet PO SCH (08:00)
[2023-05-02] MEDS ORDERED: famotidine 20mg tablet PO SCH (08:00)
[2023-05-02] MEDS ORDERED: cholecalciferol (vitamin D3) 400 unit (10mcg) tablet PO SCH (08:00)
[2023-05-02] MEDS ORDERED: sertraline 50mg tablet PO SCH (08:00)
[2023-05-02] MEDS ORDERED: ferrous sulfate 325mg tablet PO SCH (08:00)
[2023-05-02] MEDS ORDERED: ascorbic acid 500mg tablet PO SCH (08:00)
[2023-05-02] MEDS ORDERED: atorvastatin 20mg tablet PO SCH (08:00)
[2023-05-02] MEDS ORDERED: tamsulosin 0.4mg capsule PO SCH (08:00)
[2023-05-02] MEDS ORDERED: allopurinol 100mg tablet PO SCH (08:30)
[2023-05-02] MEDS: sucralfate 1 gm tablet PO SCH (08:43)
[2023-05-02 08:47] VITALS: BP 98/53
[2023-05-02 10:00] VITALS: BP 112/58; PULSE 89; RESP 16; TEMP 97.8; O2SAT 97
[2023-05-02] MEDS ORDERED: HYDR-3972 PO ×2 (11:41)
[2023-05-02] MEDS ORDERED: HYDR-3965 PO (14:05)
[2023-05-02 14:36] VITALS: RESP 15
[2023-05-03] MEDS ORDERED: cholecalciferol (vitamin D3) 1,000 unit (25mcg) tablet PO SCH (08:00)
[2023-05-06] MEDS ORDERED: SEMAGLUTIDE 0.5 MG SQ SCH (08:00)
== END 2023-05-02 15:20 | disposition home or self-care (01) ==
LOC: PAS 05:38 → PAS IN 07:28 → ORTHO 4S 19:48
PROVIDERS: ADMIT Specialist; ATTEND Specialist
DX: M75.101 Unspecified rotator cuff tear or rupture of right shoulder, not specified as traumatic (principal); M17.11 Unilateral primary osteoarthritis, right knee; E11.9 Type 2 diabetes mellitus without complications; J44.9 Chronic obstructive pulmonary disease, unspecified; G47.30 Sleep apnea, unspecified; E78.5 Hyperlipidemia, unspecified; I25.2 Old myocardial infarction; F32.A Depression, unspecified; F43.10 Post-traumatic stress disorder, unspecified; Z79.899 Other long term (current) drug therapy
CPT/HCPCS: 23430; 23472; 36415; 71046; 73030; 80051; 80053; 81003; 82565; 82948; 83036; 84520; 85025; 85610; 85730; 86885; 86900; 86901; 87081; 96365; 96366; 97110; 97116; 97161; 97530; C1776; G0378; J0690; J0735; J1815; J2250; J2704; J2795; J3010; J3370; J3480; J3490; J7030; J7040; J7120; A4565; A4618; A6449; A6455; A7000

== ENCOUNTER 2023-06-12 14:00 | Inpatient (IN) | payer BC ==
[2023-06-08 10:30] LABS: BILIRUBIN,URINE NEGATIVE (Neg); CLARITY,URINE CLEAR (Clear); COLOR,URINE YELLOW (Yellow); GLUCOSE, URINE NEGATIVE (Neg); KETONES,URINE NEGATIVE (Neg); LEUKOCYTE ESTERASE ,URINE NEGATIVE (Neg); NITRITES, URINE NEGATIVE (Neg); OCCULT BLOOD,URINE NEGATIVE (Neg); PH,URINE 5.5 (4.8-8.0); PROTEIN,URINE NEGATIVE (Neg); UROBILINOGEN,URINE 0.2 E.U/dL (0.2-1.0)
[2023-06-08 10:37] LABS: BASOPHILS # (AUTO) 0.1 X10'3 (0-0.2); EOSINOPHILS # (AUTO) 0.2 X10'3 (0-0.9); EOSINOPHILS % (AUTO) 3.2 % (0-6); LYMPHOCYTES % (AUTO) 15.4 % (21-51); MEAN CORPUSCULAR HEMOGLOBIN 30.7 PG (27.0-31.0); MEAN CORPUSCULAR HGB CONC 32.9 g/dL (33.0-36.5); MEAN CORPUSCULAR VOLUME 93.3 FL (78-98); MEAN PLATELET VOLUME 7.5 FL (7.4-10.4); MONOCYTES # (AUTO) 0.6 X10'3 (0-0.9); MONOCYTES % (AUTO) 8.8 % (2-12); NEUTROPHILS # (AUTO) 4.9 X10'3 (1.8-7.7); NEUTROPHILS % (AUTO) 71.6 % (42-75); PRE OP HEMATOCRIT 31.1 % (42.0-52.0); PRE OP PLATELET COUNT 135 X10'3 (140-440); PRE OP WHITE BLOOD COUNT 6.8 10'3 (4.8-10.8); RED BLOOD COUNT 3.34 X10'6 (4.70-6.10)
[2023-06-08 10:38] LABS: UA COLLECTION TYPE CLN CATCH MIDSTREAM
[2023-06-08 10:46] LABS: PRE OP HEMOGLOBIN 10.3 g/dL (14.0-17.9)
[2023-06-08 11:14] LABS: PRE OP PROTIME 10.6 SECONDS (9.0-12.0)
[2023-06-08 13:07] LABS: ALBUMIN 3.3 G/DL (3.4-5.0); ALKALINE PHOSPHATASE 80 IU/L (46-116); BLOOD UREA NITROGEN 42 MG/DL (7-18); BUN/CREATININE RATIO 18.2 (10.0-20.0); CHLORIDE 107 MMOL/L (99-107); CREATININE 2.31 MG/DL (0.60-1.10); PRE OP ALT 17 U/L (30-65); PRE OP ANION GAP 11 (8-16); PRE OP AST 12 U/L (10-37); PRE OP BILIRUB, TOTAL 0.6 MG/DL (0.0-1.0); PRE OP GLUCOSE 112 MG/DL (70-104); PRE OP POTASSIUM 4.2 MMOL/L (3.4-5.1); PRE OP SODIUM 141 MMOL/L (135-145); TOTAL CARBON DIOXIDE 23.2 MMOL/L (24-32); TOTAL PROTEIN 6.7 G/DL (6.4-8.2); eGFR 28 ML/MIN
[~2023-06-12] VITALS: Ht 180.3 cm; Wt 94.0 kg
[2023-06-12] MEDS: tranexamic acid inj. 1,000 MG in normal saline IV soln 100ML IV ONE (05:30)
[2023-06-12] MEDS: famotidine 20mg tablet PO ONE (05:30)
[2023-06-12] MEDS: cefazolin 2gm/D5W 100mL 100 ML IV ONE (05:30)
[~2023-06-12 14:00] MED LIST changes: +HYDR-3973 PO; +OMEG-5 PO; +VITE400C PO; +albuterol 2.5 MG/3 ML nebule NEB ONE; -cefazolin 2gm/D5W 100mL 100 ML IV ONE; -famotidine 20mg tablet PO ONE; -normal saline 1000ml 1,000 ML IV SCH; +ringers solution, lacted 1,000 ML IV SCH; -tranexamic acid inj. 1,000 MG in normal saline IV soln 100ML IV ONE
[2023-06-19] VITALS (21 sets, daily range): BP systolic 87–140; BP diastolic 47–86; PULSE 89–109; RESP 12–18; TEMP 98.3–98.5; O2SAT 94–98
[2023-06-19] MEDS ORDERED: famotidine 20mg tablet PO ONE (05:30)
[2023-06-19] MEDS ORDERED: tranexamic acid inj. 1,000 MG in normal saline IV soln 100ML IV ONE (05:30)
[2023-06-19] MEDS ORDERED: albuterol 2.5 MG/3 ML nebule NEB ONE (05:30)
[2023-06-19] MEDS ORDERED: cefazolin 2gm/D5W 100mL 100 ML IV ONE (05:30)
[2023-06-19] MEDS ORDERED: DOCUMENT DATE & TIME OF BETA-BLOCKER PO ONE (05:30)
[2023-06-19] MEDS ORDERED: methylene blue (5mg/ml) 50mg/10ml ampul IV ONE (12:20)
[2023-06-19] MEDS ORDERED: tobramycin sulfate 1.2gm vial ONE (12:20)
[2023-06-19] MEDS: ringers solution, lacted 1,000 ML IV SCH (12:30)
[2023-06-19] MEDS ORDERED: midazolam 1 mg/ML 2ml injection ONE (12:56)
[2023-06-19] MEDS ORDERED: fentaNYL/PF 50MCG/1 ML 2ML syringe ONE (12:56)
[2023-06-19] MEDS ORDERED: ROPIVAcaine 0.5% (5mg/ml) 30ml vial ONE (12:59)
[2023-06-19] MEDS ORDERED: propofol inj 20 ML IV ONE (12:59)
[2023-06-19] MEDS ORDERED: dexamethasone sod phosphate 10mg/ml inj ONE (13:00)
[2023-06-19] MEDS ORDERED: sevoflurane 250ml liquid IH ONE (13:00)
[2023-06-19] MEDS ORDERED: LIDOcaine 2% (20mg/ml) 5ml vial ONE (13:00)
[2023-06-19] MEDS ORDERED: ondansetron/PF 4mg/2ml inj ONE (13:00)
[2023-06-19] MEDS ORDERED: magnesium hydroxide 30ml (MOM) UD suspension PO PRN (13:15)
[2023-06-19] MEDS ORDERED: diphenhydrAMINE 25mg capsule PO PRN (13:15)
[2023-06-19] MEDS ORDERED: naloxone 0.4 mg/ml inj IV PRN (13:15)
[2023-06-19] MEDS ORDERED: oxyCODONE IR 5mg (immed. release) tablet PO PRN (13:15)
[2023-06-19] MEDS ORDERED: acetaminophen 325mg tablet PO PRN (13:15)
[2023-06-19] MEDS ORDERED: ondansetron/PF 4mg/2ml inj IV PRN ×2 (13:15→14:20)
[2023-06-19] MEDS ORDERED: bisacodyl 10mg suppository rectal RC PRN (13:15)
[2023-06-19] MEDS ORDERED: proCHLORperazine 10 MG/2 ml inj IV PRN (14:20)
[2023-06-19] MEDS ORDERED: ringers solution, lacted 1,000 ML IV SCH (14:20)
[2023-06-19] MEDS ORDERED: enalaprilat dihydrate 2.5mg/2ml vial IV PRN (14:20)
[2023-06-19] MEDS ORDERED: labetalol 20mg/4ml (5mg/ml) syringe IV PRN (14:20)
[2023-06-19] MEDS ORDERED: meperidine/PF 25mg/ml syringe IV PRN ×2 (14:20)
[2023-06-19] MEDS: vancomycin 1,000mg inj ONE (15:12)
[2023-06-19] MEDS: meperidine/PF 25mg/ml syringe IV PRN (16:12)
[2023-06-19] MEDS ORDERED: DEXTROSE 15 GM of carb/4 tabs (each vial/BOTTLE has 4 tablets) PO PRN ×2 (17:50)
[2023-06-19] MEDS ORDERED: glucagon, human recombinant 1mg kit SUBCUT PRN (17:50)
[2023-06-19] MEDS ORDERED: dextrose 50%-water 50ml dispensing syringe IV PRN ×2 (17:50)
[2023-06-19] MEDS: HYDROcodone/acetaminophen 5mg/325mg tablet PO PRN (17:55)
[2023-06-19] MEDS: carVEDilol 12.5mg tablet PO SCH (20:00)
[2023-06-19] MEDS: cefazolin 2gm/D5W 100mL 100 ML IV SCH (20:28)
[2023-06-19] MEDS: normal saline 1000ml 1,000 ML IV SCH (20:28)
[2023-06-19] MEDS: insulin glargine (Lantus) pen - multi-dose SQ SCH (22:24)
[2023-06-20] MEDS: potassium cl 20mEq in 1/2 NS 1,000 ML IV SCH (02:35)
[2023-06-20] MEDS: HYDROcodone/acetaminophen 5mg/325mg tablet PO PRN (04:06)
[2023-06-20 06:00] VITALS: BP 109/62; PULSE 95; RESP 18; TEMP 97.9; O2SAT 96
[2023-06-20 06:56] LABS: BASOPHILS % (AUTO) 0.4 % (0-1); EOSINOPHILS % (AUTO) 0 % (0-6); HEMATOCRIT 25.4 % (42.0-52.0); HEMOGLOBIN 8.3 g/dl (14.0-17.9); LYMPHOCYTES # (AUTO) 0.8 X10'3 (1.1-4.8); MEAN CORPUSCULAR HEMOGLOBIN 30.6 PG (27.0-31.0); MEAN CORPUSCULAR HGB CONC 32.7 g/dL (33.0-36.5); MEAN CORPUSCULAR VOLUME 93.6 FL (78-98); MEAN PLATELET VOLUME 7.6 FL (7.4-10.4); MONOCYTES # (AUTO) 0.7 X10'3 (0-0.9); MONOCYTES % (AUTO) 9.5 % (2-12); NEUTROPHILS % (AUTO) 79.1 % (42-75); PLATELET COUNT 149 X10'3 (140-440); RED BLOOD COUNT 2.72 X10'6 (4.70-6.10); RED CELL DISTRIBUTION WIDTH 15.7 % (11.5-14.5); WHITE BLOOD COUNT 7.5 X10'3 (4.5-11.0)
[2023-06-20 07:27] LABS: ALANINE AMINOTRANSFERASE 14 U/L (12-78); ALBUMIN 2.8 G/DL (3.4-5.0); ALKALINE PHOSPHATASE 77 IU/L (46-116); ANION GAP 10 (8-16); ASPARTATE AMINO TRANSFERASE 18 U/L (10-37); BILIRUBIN,TOTAL 0.2 MG/DL (0.1-1.0); BLOOD UREA NITROGEN 43 MG/DL (7-18); BUN/CREATININE RATIO 17.2 (10.0-20.0); CALCIUM 8.8 MG/DL (8.5-10.1); CHLORIDE 105 MMOL/L (99-107); GLUCOSE 203 MG/DL (70-104); POTASSIUM 4.8 MMOL/L (3.5-5.1); SODIUM 139 MMOL/L (135-145); TOTAL CARBON DIOXIDE 23.6 MMOL/L (24-32); TOTAL PROTEIN 5.7 G/DL (6.4-8.2); eCRCL 26 ML/MIN; eGFR 25 ML/MIN
[2023-06-20] MEDS: famotidine 20mg tablet PO SCH (09:01)
[2023-06-20] MEDS: aspirin 325mg tablet, delayed-release (Ecotrin) PO SCH (09:02)
[2023-06-20] MEDS: DOXYCYCLINE 100MG CAPSULE PO SCH (09:03)
[2023-06-20] MEDS: sertraline 50mg tablet PO SCH (09:03)
[2023-06-20] MEDS: cholecalciferol (vitamin D3) 1,000 unit (25mcg) tablet PO SCH (09:05)
[2023-06-20] MEDS: atorvastatin 20mg tablet PO SCH (09:05)
[2023-06-20] MEDS: mesalamine 1.2gm ER tablet PO SCH (09:06)
[2023-06-20] MEDS: insulin Lispro (HumaLOG) vial - multi-dose SQ SCH (10:00)
[2023-06-20] MEDS ORDERED: DOXY100T30 PO (12:07)
[2023-06-20 13:48] VITALS: RESP 14
[2023-06-20] MEDS ORDERED: famotidine 20mg tablet PO SCH (14:39)
== END 2023-06-20 15:12 | disposition home or self-care (01) | DRG 483 ==
LOC: PAS IN 06-19 10:03 → ORTHO 4S 06-19 17:16
PROVIDERS: ADMIT Specialist; ATTEND Specialist
PROC: 0RPJ0JZ Removal of Synthetic Substitute from Right Shoulder Joint, Open Approach (ICD-10-PCS; 2023-06-19)
PROC: 3E0T3BZ Introduction of Anesthetic Agent into Peripheral Nerves and Plexi, Percutaneous Approach (ICD-10-PCS; 2023-06-19)
PROC: 3E0T33Z Introduction of Anti-inflammatory into Peripheral Nerves and Plexi, Percutaneous Approach (ICD-10-PCS; 2023-06-19)
PROC: 0RRJ00Z Replacement of Right Shoulder Joint with Reverse Ball and Socket Synthetic Substitute, Open Approach (ICD-10-PCS; principal; 2023-06-19 13:00)
DX: T84.038A Mechanical loosening of other internal prosthetic joint, initial encounter (principal); I13.0 Hypertensive heart and chronic kidney disease with heart failure and stage 1 through stage 4 chronic kidney disease, or unspecified chronic kidney disease; I50.22 Chronic systolic (congestive) heart failure; N18.4 Chronic kidney disease, stage 4 (severe); T84.028A Dislocation of other internal joint prosthesis, initial encounter; E11.22 Type 2 diabetes mellitus with diabetic chronic kidney disease; G47.33 Obstructive sleep apnea (adult) (pediatric); I25.10 Atherosclerotic heart disease of native coronary artery without angina pectoris; K21.9 Gastro-esophageal reflux disease without esophagitis; M10.9 Gout, unspecified; J44.9 Chronic obstructive pulmonary disease, unspecified; E78.5 Hyperlipidemia, unspecified; F32.A Depression, unspecified; Y83.1 Surgical operation with implant of artificial internal device as the cause of abnormal reaction of the patient, or of later complication, without mention of misadventure at the time of the procedure; Z95.810 Presence of automatic (implantable) cardiac defibrillator; Z95.2 Presence of prosthetic heart valve; Z63.4 Disappearance and death of family member; Y92.89 Other specified places as the place of occurrence of the external cause; Z88.5 Allergy status to narcotic agent; Z88.1 Allergy status to other antibiotic agents; Z79.899 Other long term (current) drug therapy; Z95.5 Presence of coronary angioplasty implant and graft
CPT/HCPCS: 36415; 73030; 76000; 80053; 81003; 82948; 85025; 85610; 85730; 86885; 86900; 86901; 87070; 87075; 87081; 97161; 97530; A4615; G0378; J0690; J1100; J1815; J2175; J2250; J2405; J2704; J2795; J3010; J3260; J3370; J3480; J3490; J7030; J7120; Q9968